=== PATIENT | female | born 1945 | race Caucasian/White ===

== ENCOUNTER 2019-06-14 09:40 | Observation (INO) | payer MEDICARE, BC, SELFPAY ==
[2019-06-14] VITALS (7 sets, daily range): BP systolic 99–173; BP diastolic 58–85; PULSE 72–86; RESP 13–22; TEMP 36.7–37; O2SAT 93–97; BMI 40.7
--- NOTE | 2019-06-14 10:03 | ED_ITS ---
Entered by Adan Diaz, acting as scribe for Arsenio Montse DO HPI - Chest Pain General: Chief Complaint: Chest Pain Stated Complaint: chest pains, dizzy Time Seen by Provider: 06/14/19 09:58 History of Present Illness: HPI narrative: 73 yo female presents with chest pain. Pt states that she couldn't stand up due to cramping in her chest. Pt states that she had stents placed 10 years ago. pt states that she just moved here, she only has a PCP set up at this time. pt states that she became short of breath with the pain. pt states that the pain is no longer there. MD complaint: chest pain Onset (ago): minute(s) (20 mins) Onset: during rest Severity: moderate Quality: tightness and sharp Relieving factors: nothing Exacerbating factors: exertion Associated symptoms: Reports dyspnea and nausea; Deny abdominal pain, fever(s), palpitations, syncope or vomiting Review of Systems Const: Denies: fever, chills, body aches, fatigue, malaise or night sweats Eyes: Denies: change in vision or blurry vision ENMT: Denies: throat pain, oral sores/lesions, dental pain, nasal discharge or nasal congestion Card: Reports: chest pain and shortness of breath on exertion; Denies: palpitations, irregular heart rhythm, edema, syncope, shortness of breath when lying down or leg pain with exertion Resp: Reports: shortness of breath GI: Reports: nausea; Denies: abdominal pain, vomiting, vomiting blood, coffee grounds in vomit, difficulty swallowing, heartburn/indigestion, diarrhea, constipation, cramping, blood in stool or black tarry stool : Denies: flank pain, painful urination, urinary frequency, urinary urgency, urinary incontinence or blood in urine Musc: Denies: neck pain, back pain, extremity pain, extremity swelling, joint pain or joint swelling Skin/Breast: Denies: rash, itching or redness Neuro: Denies: headache, numbness in extremities, weakness in extremities, changes in sensation, lack of coordination, difficulty walking, frequent falls, dizziness, vertigo or confusion Psych: Denies: anxiety, depression, loss of interest, visual hallucinations, auditory hallucinations, suicidal ideation or homicidal ideation Endo: Denies: excessive urination, excessive thirst, tired all the time or cold intolerance Piyush/Lymph: Denies: easy bruising, easy bleeding, petechiae, enlarged lymph nodes or tender lymph nodes PFSH ED PFSH: Statuses (acute, chronic, etc) shown below reflect problem list status as previously entered and may not be historically accurate Medical History Coronary artery disease (Inactive) Depression (Acute) Hydrocephalus (Acute) Hyperlipidemia (Acute) Hypertension (Acute) Lumbar disc disease with radiculopathy (Acute) Obesity (Acute) Pulmonary embolism (Acute) Surgical History History of adjustable gastric banding (Acute) History of heart artery stent (Acute) History of hip replacement, total (Acute) Left, Right Hx of appendectomy (Acute) Family History Other Adopted Social History Smoking and tobacco status: never smoked Alcohol intake: never Physical Exam Const: COMMON NORMALS: average body habitus, oriented x3 and alert GENERAL APPEARANCE: cooperative, comfortable, well kempt and well developed NUTRITIONAL APPEARANCE: obese ORIENTATION/CONSCIOUSNESS: Yes awake, Yes oriented to person and Yes oriented to place HENMT: COMMON NORMALS: normocephalic, head/scalp atraumatic, EAC's normal, TM's normal bilaterally, external nose normal, moist oral mucous membranes and oropharynx normal HEAD & SCALP: normocephalic and atraumatic NOSE: external nose normal EXTERNAL AUDITORY CANAL: EAC's normal TYMPANIC MEMBRANE: TM's normal bilaterally MOUTH: oral and palatal mucosa normal, lip normal and tongue normal THROAT: posterior oropharynx normal and tonsils normal Eye: COMMON NORMALS: PERRL, EOMs intact bilaterally, conjunctivae normal and no scleral icterus CONJUNCTIVA: Yes conjunctivae normal PUPIL: Yes PERRL Neck/C-Spine: COMMON NORMALS: full ROM, no lymphadenopathy, supple, no meningeal signs and thyroid normal THYROID: thyroid normal and asymmetrical Lymph: LYMPHATIC: no lymphadenopathy noted Resp: COMMON NORMALS: normal respiratory effort, no retractions, no use of accessory muscles and clear to auscultation bilaterally AUSCULTATION: clear to auscultation bilaterally Cardio: COMMON NORMALS: regular rate and regular rhythm RATE: regular rate RHYTHM: regular rhythm HEART SOUNDS: no murmurs GI: COMMON NORMALS: normal to inspection, nondistended, normoactive bowel sounds, soft to palpation and no hepatosplenomegaly PALPATION: Yes soft and Yes no hepatosplenomegaly : COMMON NORMALS: Yes no CVA tenderness BLADDER/KIDNEY EXAM: Yes no CVA tenderness Back/Pelvis: COMMON NORMALS: no CVA tenderness LUMBAR SPINE/LOWER BACK: Yes normal to inspection Extremity: COMMON NORMALS: no clubbing, cyanosis or edema, no calf tenderness and no pedal edema Neuro: COMMON NORMALS: oriented x3 SENSORIUM/ORIENTATION: Yes alert, Yes oriented to person and Yes oriented to place MENINGEAL SIGNS: Yes no meningeal signs Psych: APPEARANCE: Yes well kempt Skin: COMMON NORMALS: no rashes or lesions noted and skin turgor normal GENERAL SKIN EXAM: no rashes or lesions noted and turgor normal Course Vital Signs: Vital signs: Vital Signs Temperature 98.4 F 06/14/19 09:55 Pulse Rate 81 06/14/19 15:05 Respiratory Rate 13 06/14/19 15:05 Blood Pressure 120/72 06/14/19 15:05 Pulse Oximetry 96 06/14/19 15:05 MDM - Chest Pain Lab Data: Labs: Lab Results 06/14/19 06/14/19 06/14/19 Range/Units 10:13 10:13 10:13 WBC 4.6 (4.0-10.0) 10^3/ uL RBC 4.67 (4.1-5.3) 10^6/u L Hgb 14.4 (11.5-15.3) g/dL Hct 41.8 (37.0-47.0) % MCV 89.5 (81-99) fL MCH 30.8 (28.0-34.0) pg MCHC 34.4 (30.0-36.0) g/dL RDW 11.9 L (12.1-15.1) % Plt Count 195 (130-400) 10^3/c mm MPV 9.5 (7.4-10.4) fL Neut % (Auto) 54.4 % Lymph % (Auto) 34.4 % [place] % (Auto) 5.9 % Eos % (Auto) 4.6 % Baso % (Auto) 0.7 % Neut # (Auto) 2.5 (1.8-7.7) 10^3/u L Lymph # (Auto) 1.6 (0.8-4.8) 10^3/u L [place] # (Auto) 0.3 (0.2-0.9) 10^3/u L Eos # (Auto) 0.2 (0.0-0.8) 10^3/u L Baso # (Auto) 0.0 (0.0-0.1) 10^3/u L Nucleated RBC % (a uto) 0 % Nucleated RBCs # 0.0 /100WBC Sodium 137 (136-145) mmol/L Potassium 3.9 (3.5-5.1) mmol/L Chloride 100 (98-107) mmol/L Carbon Dioxide 26 (22-29) mmol/L Anion Gap 14.9 (5-19) BUN 9 (8-23) mg/dL Creatinine 0.7 (0.5-0.9) mg/dL Glucose 253 H (74-106) mg/dL Calcium 9.5 (8.8-10.2) mg/Dl Total Bilirubin 0.7 (0.15-1.2) mg/dL AST 12 (0-32) U/L ALT 13 (0-33) U/L Alkaline Phosphata se 127 H (35-105) IU/L Troponin T Baselin e 8 (0-10) ng/mL Troponin T 120 Min sascha (0-10) ng/mL Delta Troponin T (0-10) ABS# Total Protein 6.9 (6.6-8.7) g/dL Albumin 4.2 (3.5-5.2) g/dL Globulin 2.7 (1.3-4.6) g/dL Lipase 13 (13-60) U/L 06/14/19 Range/Units 12:00 WBC (4.0-10.0) 10^3/ uL RBC (4.1-5.3) 10^6/u L Hgb (11.5-15.3) g/dL Hct (37.0-47.0) % MCV (81-99) fL MCH (28.0-34.0) pg MCHC (30.0-36.0) g/dL RDW (12.1-15.1) % Plt Count (130-400) 10^3/c mm MPV (7.4-10.4) fL Neut % (Auto) % Lymph % (Auto) % [place] % (Auto) % Eos % (Auto) % Baso % (Auto) % Neut # (Auto) (1.8-7.7) 10^3/u L Lymph # (Auto) (0.8-4.8) 10^3/u L [place] # (Auto) (0.2-0.9) 10^3/u L Eos # (Auto) (0.0-0.8) 10^3/u L Baso # (Auto) (0.0-0.1) 10^3/u L Nucleated RBC % (a uto) % Nucleated RBCs # /100WBC Sodium (136-145) mmol/L Potassium (3.5-5.1) mmol/L Chloride (98-107) mmol/L Carbon Dioxide (22-29) mmol/L Anion Gap (5-19) BUN (8-23) mg/dL Creatinine (0.5-0.9) mg/dL Glucose (74-106) mg/dL Calcium (8.8-10.2) mg/Dl Total Bilirubin (0.15-1.2) mg/dL AST (0-32) U/L ALT (0-33) U/L Alkaline Phosphata se (35-105) IU/L Troponin T Baselin e (0-10) ng/mL Troponin T 120 Min sascha 8.33 (0-10) ng/mL Delta Troponin T 0.33 (0-10) ABS# Total Protein (6.6-8.7) g/dL Albumin (3.5-5.2) g/dL Globulin (1.3-4.6) g/dL Lipase (13-60) U/L Discharge Plan Discharge Admit Provider: Dominic Zimmer Clinical Impression: Chest pain, Hypertension, Dizziness Condition: Stable Interventions: ED Discharge Assessment Last Done: 06/14/19 15:05 Discharge Date/Time: 06/14/19 15:06 Coding Level of Care Code ED Guard Captain for Chg Fwd Exam Problem Focused The documentation recorded by the scribeJoe Kialy, accurately reflects the service I personally performed and the decisions made by me, Arsenio Montes, Jun 14, 2019 09:40
--- NOTE | 2019-06-14 10:09 | ECG_ITS ---
Measurements Intervals [place] Rate: 86 P: 48 CO: 164 QRS: -63 QRSD: 121 T: 12 QT: 391 QTc: 468 SINUS RHYTHM LEFT AXIS DEVIATION [QRS AXIS < -30] POSSIBLE LEFT VENTRICULAR HYPERTROPHY [VOLTAGE CRITERIA PLUS LAE OR QRS WIDENING] POSSIBLE ANTEROSEPTAL MYOCARDIAL INFARCTION , PROBABLY OLD [30 ms Q WAVE IN V1-V4] No previous ECG available for comparison Electronically Signed On 06-14-2019 20:11:49 CONSOLIDATOR by Becky Sanon M.D. [id number]
--- NOTE | 2019-06-14 10:09 | XR_ITS ---
WS: [id number] PORTABLE CHEST HISTORY: cheat pain COMPARISON: None available. NEW GRAD RN shunt catheter projects over the RIGHT thorax. Lungs are clear and well expanded. No pleural effusion or pneumothorax. Cardiac size: Normal. Mediastinum/Aorta: Mild atherosclerosis aorta. No osseous abnormality seen. XR/XR chest 1V portable [id number] IMPRESSION: Partially calcified thoracic aorta. No acute findings.
[2019-06-14 10:20] LABS: Basophils % 0.7 %; Eosinophils # 0.2 10^3/uL (0.0-0.8); Eosinophils % 4.6 %; Hematocrit 41.8 % (37.0-47.0); Hemoglobin 14.4 g/dL (11.5-15.3); Lymphocytes # 1.6 10^3/uL (0.8-4.8); Lymphocytes % 34.4 %; Mean Corpuscular HGB Conc 34.4 g/dL (30.0-36.0); Mean Corpuscular Hemoglobin 30.8 pg (28.0-34.0); Mean Corpuscular Volume 89.5 fL (81-99); Mean Platelet Volume 9.5 fL (7.4-10.4); Monocytes # 0.3 10^3/uL (0.2-0.9); Monocytes % 5.9 %; Neutrophils # 2.5 10^3/uL (1.8-7.7); Neutrophils % 54.4 %; Nucleated Red Blood Cells % 0 %; Platelet Count 195 10^3/cmm (130-400); Red Blood Count 4.67 10^6/uL (4.1-5.3); Red Cell Distribution Width 11.9 % (12.1-15.1); White Blood Count 4.6 10^3/uL (4.0-10.0)
[2019-06-14] MEDS: aspirin 81 mg Chew Tablet 324 MG PO (10:22)
[2019-06-14 10:41] LABS: Alanine Aminotransferase 13 U/L (0-33); Albumin Level 4.2 g/dL (3.5-5.2); Alkaline Phosphatase 127 IU/L (35-105); Anion Gap 14.9 (5-19); Aspartate Amino Transferase 12 U/L (0-32); Blood Urea Nitrogen 9 mg/dL (8-23); Calcium 9.5 mg/Dl (8.8-10.2); Carbon Dioxide 26 mmol/L (22-29); Chloride 100 mmol/L (98-107); Globulin 2.7 g/dL (1.3-4.6); Glucose 253 mg/dL (74-106); Lipase 13 U/L (13-60); Potassium 3.9 mmol/L (3.5-5.1); Sodium 137 mmol/L (136-145); Total Bilirubin 0.7 mg/dL (0.15-1.2); Total Protein 6.9 g/dL (6.6-8.7)
[2019-06-14 10:42] LABS: Troponin(5th) Baseline 8 ng/mL (0-10)
--- NOTE | 2019-06-14 12:09 | ECG_ITS ---
Measurements Intervals [place] Rate: 77 P: 52 NV: 183 QRS: -61 QRSD: 119 T: 4 QT: 405 QTc: 460 SINUS RHYTHM LEFT ANTERIOR FASCICULAR BLOCK [QRS AXIS <= -45, QR IN I, RS IN II] POSSIBLE ANTEROSEPTAL MYOCARDIAL INFARCTION , PROBABLY OLD [30 ms Q WAVE IN V1-V4] No previous ECG available for comparison Electronically Signed On 06-14-2019 20:13:13 SOFTWARE TEST ENGINEER by Becky Sanon M.D. [id number]
[2019-06-14 12:26] LABS: Troponin 5 2HR 8.33 ng/mL (0-10); Troponin 5 2HR Delta 0.33 ABS# (0-10)
--- NOTE | 2019-06-14 13:27 | P.HP_ITS ---
Providers/Chief Complaint Chief Complaint: chest pains, dizzy History of Present Illness Cherelle Sue is a 73 year old female that presents to the emergency department with complaints of chest pain. She reports she had a chest pain episode about 4 weeks ago, associated with cramping in her right chest. She reports this occurred after being asleep. This went away and she did not seek any further care. She did tell her primary at some point and is scheduled for a stress test next week. She reports she had recurrent chest pain, right side and then substernally, felt to be a cramping, occurring after she woke up and lasting 15 minutes today. She reports she occasionally feels like she has a spasm there now but will only last several seconds. She denies any injury to her chest or recent activity that could have caused muscular pain. Denies any heartburn, blood in her stool, or black or tarry stools. No shortness of breath, or nausea. Does not have any chest discomfort currently. She does report some dizziness lately as well. She reports that is been going on for 3 months. She has seen neurology. She has had a shunt series which she reports was normal. Head CT done in April was without any acute changes. Review of Systems General: Reports: 10 or more systems reviewed and unremarkable except in HPI and below Const: Denies: fever or chills Eyes: Denies: eye discomfort ENMT: Denies: throat pain Card: Reports: chest pain Resp: Denies: shortness of breath GI: Denies: abdominal pain : Denies: difficulty urinating Musc: Denies: extremity pain Skin/Breast: Denies: rash Neuro: Reports: dizziness Psych: Reports: depression Medications/Allergies Home Medications Medication Instructions Recorded Confirmed Last Taken Type duloxetine 60 mg PO DAILY 06/14/19 06/14/19 06/13/19 History Allergies Allergy/AdvReac Type Severity Reaction Status Date / Time No Known Allergies Allergy Unverified 06/13/19 13:29 PFSH Acute PFSH: Statuses (acute, chronic, etc) shown below reflect problem list status as previously entered and may not be historically accurate Medical History (Updated 06/14/19 @ 13:51 by Dominic Zimmer MD) Coronary artery disease (Inactive) Depression (Acute) Hydrocephalus (Acute) Hyperlipidemia (Acute) Hypertension (Acute) Lumbar disc disease with radiculopathy (Acute) Obesity (Acute) Pulmonary embolism (Acute) Surgical History (Updated 06/14/19 @ 13:34 by Dominic Zimmer MD) History of adjustable gastric banding (Acute) History of heart artery stent (Acute) History of hip replacement, total (Acute) Left, Right Hx of appendectomy (Acute) Family History (Updated 06/14/19 @ 13:36 by Dominic Zimmer MD) Other Adopted Social History Smoking and tobacco status: never smoked Alcohol intake: never Vitals/I&O/Wt Last Vital Signs Temp 98.4 F 06/14/19 09:55 Pulse 81 06/14/19 09:55 Resp 16 06/14/19 09:55 BP 173/85 06/14/19 09:55 Pulse Ox 95 06/14/19 09:55 Weight last 48 hrs Weight 111.13 kg Physical Exam Narrative: EXAM NARRATIVE: General exam is an obese white female in no apparent distress HEENT: Pupils equally round. Oropharynx clear Neck is supple no lymphadenopathy or thyromegaly Cardiovascular regular rate and rhythm without murmur. No S3 or S4. Lungs clear no wheezing or crackles Abdomen is soft obese nontender with positive bowel sounds. No obvious organomegaly was deferred Extremities no cyanosis clubbing or edema, cap refill brisk Skin no rash. Multiple seborrheic keratoses Neuro no focal deficits Data : 06/14/19 10:13 06/14/19 10:13 Other data: EKG demonstrates a sinus rhythm, poor R wave progression Chest x-ray reviewed, no infiltrate A&P Assessment and plan (1) Hypertension: Status: Acute Code(s): I10 - Essential (primary) hypertension (2) Chest pain: Significant risk factors and past history of coronary disease with stent placement approximately 10 years ago. Will need to rule out myocardial infa rction, perform nuclear stress test, and echocardiogram. Status: Acute Code(s): R07.9 - Chest pain, unspecified (3) Dizziness: Evaluated by neurology in the recent past. No evidence of SPORTS ADMINISTRATOR shunt dysfunction Status: Acute Code(s): R42 - Dizziness and giddiness (4) Elevated glucose: Will check hemoglobin A1c. Sliding scale insulin for now Status: Acute Code(s): R73.09 - Other abnormal glucose Additional A&P Information Past history of coronary disease, with stenting approximately 10 years ago History of SPORTS ADMINISTRATOR shunt, and from their description probable normal pressure hydrocephalus History of DVT and pulmonary embolism with past history of vena cava filter, removal, and venous stents. On chronic anticoagulation Hypertension Hyperlipidemia Obesity DJD Attestations Medical Necessity Statement*: Will need less than 2 midnight stay for evaluation of chest pain Coding Level of Care Code Acute Spool Winder for [facility] Fwd Diagnoses Hypertension I10 Chest pain R07.9 Dizziness R42 Elevated glucose R73.09
--- NOTE | 2019-06-14 17:08 | USCV_ITS ---
Linette Cherelle Age: 73 Gender: F : 1945 Exam Date: 06/14/2019 17:17 Ordering Phys: Dominic Zimmer MD Technologist: Love Baker [place]am [place] [facility] [place]: CHEST PAIN BP: / HR: 78 Rhythm: Sinus Technical Quality: Adequate MEASUREMENTS (Male / Female) Normal Values 2D ECHO LV Diastolic Diameter PLAX 4.8 cm 4.2 - 5.9 / 3.9 - 5.3 cm LV Systolic Diameter PLAX 2.0 cm LV Chamber Size 2.5 cm IVS Diastolic Thickness 1.1 cm 0.6 - 1.0 / 0.6 - 0.9 cm IVS Systolic Thickness 2.0 cm LVPW Diastolic Thickness 1.7 cm 0.6 - 1.0 / 0.6 - 0.9 cm LVPW Systolic Thickness 2.3 cm RV Chamber Size 3.3 cm LVOT Diameter 2.0 cm LV Ejection Fraction 2D Teich 88.4 % LA Diameter 3.6 cm LA Width 3.0 cm LA Height 3.4 cm RA Width 3.8 cm RA Height 3.1 cm Aorta at Sinotubular Diameter 2.6 cm M-MODE LV Diastolic Diameter MM 5.7 cm 4.2 - 5.9 / 3.9 - 5.3 cm LV Systolic Diameter MM 3.5 cm LV Ejection Fraction MM Teich 69.5 % IVS Diastolic Thickness MM 0.7 cm 0.6 - 1.0 / 0.6 - 0.9 cm IVS Systolic Thickness MM 1.4 cm LVPW Diastolic Thickness MM 0.9 cm 0.6 - 1.0 / 0.6 - 0.9 cm LVPW Systolic Thickness MM 1.3 cm Aortic Annulus Diameter 3.0 cm LA Ao Ratio MM 1.2 MV E Point Septal Separation 0.8 cm DOPPLER AV Peak Velocity 168.0 cm/s LVOT Peak Velocity 112.0 cm/s AV Area Cont Eq vti 1.9 cm squared AV Area Cont Eq pk 2.2 cm squared MV Area PHT 3.7 cm squared Mitral E to A Ratio 0.8 MV E' Velocity 7.0 cm/s Mitral E to MV E' Ratio 8.6 Mitral E to LV E' Lateral Ratio 8.9 Mitral E to LV E' Septal Ratio 8.3 TR Peak Velocity 272.0 cm/s TR Peak Gradient 29.7 mmHg TR Mean Velocity 183.6 cm/s TR Mean Gradient 17.5 mmHg TR Velocity Time Integral 99.4 cm TV Peak E Velocity 52.0 cm/s Right Atrial Pressure 3.0 mmHg Pulmonary Artery Systolic Pressu 32.6 mmHg PV Peak Velocity 57.0 cm/s RV Acceleration Time 0.2 s RV Ejection Time 0.3 s RV AcT/ET 0.6 FINDINGS Left Ventricle Normal left ventricular size and systolic function, EF 65% . No regional wall motion abnormalities. Some features of left ventricular diastolic dysfunction of grade 1 Right Ventricle Possibly of normal size ejection fraction Right Atrium Possibly of normal size Left Atrium Possibly of normal size Mitral Valve No gross abnormalities noted Aortic Valve Thickened aortic valve. Tricuspid Valve Mild tricuspid valve regurgitation. Pulmonic Valve Pulmonic valve not well visualized. Pericardium No pericardial effusion. Aorta Normal aortic annulus size. CONCLUSIONS Normal left ventricular size and systolic function, EF 65% . No regional wall motion abnormalities. Some features of left ventricular diastolic dysfunction of grade 1. Thickened aortic valve. Mild tricuspid valve regurgitation. Estimated pulmonary artery peak systolic pressure 33 mmHg Technically difficult study because of the poor ultrasonic window. No previous study is available for comparison. Dr Eduardo Will MD [facility] (Electronically Signed) Final Date: 14 June 2019 20:58 S
[2019-06-14 17:13] LABS: Troponin 5 6HR 8.35 ng/L (0-10); Troponin 5 6HR Delta 0.35 ng/L (0-12)
[2019-06-14 17:27] LABS: Glucose Point of Care 151 mg/dL (70-110)
[2019-06-14] MEDS: pantoprazole DR 40 mg Tablet PO (17:42)
[2019-06-14 20:21] LABS: Estmated Average Glucose 214; Hemoglobin A1C 9.1 % (4.0-6.0)
[2019-06-14 23:29] LABS: Glucose Point of Care 309 mg/dL (70-110)
[2019-06-15] VITALS (9 sets, daily range): BP systolic 97–146; BP diastolic 63–88; PULSE 74–82; RESP 16–24; TEMP 36.6–36.8; O2SAT 93–96; BMI 41.3
--- NOTE | 2019-06-15 00:40 | PC.NURSE ---
Patient is refusing novolog. Educated about the importance of the novolog d/t high blood sugars. Patient stated I dont take insulin at home and never have so I do not need it
[2019-06-15 04:29] LABS: Anion Gap 14.6 (5-19); Blood Urea Nitrogen 12 mg/dL (8-23); Calcium 9.5 mg/Dl (8.8-10.2); Carbon Dioxide 25 mmol/L (22-29); Chloride 102 mmol/L (98-107); Glucose 234 mg/dL (74-106); Potassium 3.6 mmol/L (3.5-5.1); Sodium 138 mmol/L (136-145)
[2019-06-15 04:36] LABS: Basophils % 0.5 %; Eosinophils # 0.3 10^3/uL (0.0-0.8); Eosinophils % 5.1 %; Hematocrit 42.5 % (37.0-47.0); Hemoglobin 14.2 g/dL (11.5-15.3); Lymphocytes # 2.4 10^3/uL (0.8-4.8); Mean Corpuscular HGB Conc 33.4 g/dL (30.0-36.0); Mean Corpuscular Hemoglobin 31.7 pg (28.0-34.0); Mean Corpuscular Volume 94.9 fL (81-99); Monocytes # 0.4 10^3/uL (0.2-0.9); Monocytes % 6.8 %; Neutrophils # 2.4 10^3/uL (1.8-7.7); Neutrophils % 44.4 %; Nucleated Red Blood Cells % 0 %; Platelet Count 188 10^3/cmm (130-400); Red Blood Count 4.48 10^6/uL (4.1-5.3); Red Cell Distribution Width 11.9 % (12.1-15.1); White Blood Count 5.5 10^3/uL (4.0-10.0)
--- NOTE | 2019-06-15 06:00 | ECG_ITS ---
NAME OF STUDY: LEXISCAN SESTAMIBI STRESS TEST INDICATION: Chest Pain PROCEDURE: At the baseline, the blood pressure was 129/79 mm Hg with a heart rate of 73 bpm. The electrocardiogram showed sinus rhythm, left anterior fascicular block and possible old anterior infarct. The Lexiscan was infused over a period of 20 seconds. A total of 0.4 milligrams of Lexiscan was infused. The stress phase was continued for a total of 5 minutes. Heart rate at the end of the stress phase was 93 bpm with a blood pressure 149/82 mmHg and oxygen saturation 96%. The EKG at the peak infusion revealed no significant ST-T wave changes. Sestamibi was injected 20 seconds after the Lexiscan infusion. Blood pressure at the end of the recovery phase was 140/79 mmHg with a heart rate of 86 beats per minute. CONCLUSION: 1. No significant EKG changes with the LexiScan infusion. 2. No LexiScan induced chest pain or cardiac arrhythmia. 3. Normal blood pressure and heart rate response. 4. Sestamibi/sestamibi perfusion scan pending; see separate report. Electronically Signed On 06-15-2019 17:50:57 NECKTIE STITCHER by Kiersten Soni M.D. [id number]
[2019-06-15] MEDS: losartan 50 mg Tablet 100 MG PO (09:09)
[2019-06-15] MEDS: aspirin 81 mg EC Tablet PO (09:10)
[2019-06-15] MEDS: metoprolol succinate ER (24 HR) 25 mg Tablet PO (09:10)
[2019-06-15] MEDS: rivaroxaban 10 mg Tablet PO (09:10)
[2019-06-15] MEDS: duloxetine 60 mg Capsule PO (09:10)
[2019-06-15 09:20] LABS: Glucose Point of Care 260 mg/dL (70-110)
[2019-06-15 11:29] LABS: Glucose Point of Care 203 mg/dL (70-110)
--- NOTE | 2019-06-15 12:26 | PC.CHAP ---
Pastoral Care Encounter/Spiritual Assessment Type of Contact [] Declined program counselor visit [] Patient/Family/Request visit [] Outpatient visit [] Follow-up visit [] Physician referral [] Code/Alert [x] Routine visit [] Staff referral [] Actively dying [] Patient sleeping [] Family support [] [] Out of room [] Palliative care [] [] Receiving care in room [] Pre-surgical visit [] Trauma [] Long length of stay [] ICU visit [] Other: Relational/Emotional Strength [x] Patient feels connected with others/family/visitors/staff [] Distress [] Loneliness/isolation [] Abandonment Spirituality of Patient [x] Person of Cierra [x] Attends Confucianist of their Cierra [x] Believes in Prayer [] Reads Bible or Yarsanism materials [] There are Spiritual issues to be addressed Vapor Coater Interventions [x] Prayer [x] Active listening [x] Non-anxious presence [x] Spiritual/emotional support [] Crisis/trauma care [] Spiritual counseling [] Bereavement support [] Provided bereavement packet [] Provided Bible/devotional materials [] Provided toy/stuffed animal, coloring book to patient or family member [x] Completed spiritual assessment [] Provided Communion [] Anointing/Lead [] Salvation [] Other: Impact on Illness or Injury [] Angry [] Fearful [] Anxious [] Often cries [] Exhaustion [] Unable to work [] Unable to attend restoration [] Unable to walk/stand [] Unable to read [] Unable to drive [] Unable to eat/drink [] Unable to sleep [] Unable to be with family [] Other: Summary Marcy seen patient and she seems to be doing good and is waiting on test , she was nice to talk with and enjoyed our conversation. Time spent with patient 15 minutes
--- NOTE | 2019-06-15 13:25 | NMCV_ITS ---
NM rahel perf SPECT r/s* [id number] Cherelle Sue Age: 73 Gender: F : 1945 Exam Date: 06/15/2019 12:45 Ordering Phys: Dominic Zimmer MD Technologist: AYAD Garcia Exam Location: [facility] Indications: Chest Pain, dizzyness STRESS TEST Please see separate stress test report in [facility] for full findings IMAGE PROTOCOL Rest/Stress 1 Lexiscan Day Radiopharmaceutical Dose (mCi) Administration Site Administered by Rest: Tc-99m 10.8 IV AYAD Garcia Sestamibi Stress:Tc-99m 32.8 IV AYAD Garcia Sestamibi Rest: 15-Jun-2019 60 Discovery 630 Stress: 15-Jun-2019 60 Discovery 630 0.4mg Lexiscan. Supine position only as patient was unable to lay prone due to laying on her belly making her nauseated. 48H Chest Wall. SPECT RESULTS Technical Quality: Good Raw Data Analysis: Normal, Breast attenuation. 48H chest wall. , Soft tissue attenuation Image Corrections: Attenuation correction applied to stress images Summed Stress Score: 6 Summed Rest Score: 7 Summed Difference Score: 1 PERFUSION FINDINGS Small size perfusion abnormality of mild to moderate severity of mid to apical inferolateral, apical inferior and apical castorena on rest images with improved tracer uptake on supine stress images. This is likely suggestive of attenuation artifact. FUNCTIONAL RESULTS (calculated via Gated SPECT) Stress Image LV EF (%): 76 Stress EDV (mL):68 TID: 0.85 Stress ESV (mL):16 FUNCTIONAL FINDINGS: The left ventricle is normal in size. Transient Ischemia Dilatation of 0.85. There is normal left ventricular systolic function. The left ventricular ejection fraction is normal with a value of 76%. There is normal left ventricular wall thickening. IMPRESSIONS 1. Small size perfusion abnormality of mid to apical inferolateral, apical inferior and apical castorena on rest images with improved tracer uptake on stress images. This likely suggests attenuation artifact. 2. Overall left ventricular systolic function is normal without regional wall motion abnormalities. 3. The left ventricular ejection fraction is normal with a value of 76%. 4. No significant coronary ischemia based on the study.[id number] Kiersten Soni MD (Electronically Signed) Final Date: 15 June 2019 17:40 MTDD
[2019-06-15] MEDS: ondansetron 2 mg/ML SDV 2 mL 4 MG IVP (13:35)
[2019-06-15] MEDS: regadenoson 0.4 Mg/5 ml Syringe IVP (13:41)
[2019-06-15 16:37] LABS: Glucose Point of Care 274 mg/dL (70-110)
--- NOTE | 2019-06-15 16:58 | P.DS_ITS ---
Discharge Providers Date of Admission: 06/14/19 13:24 Date of Discharge: 06/15/19 Attending Provider at Admission: Dominic Zimmer MD Attending Provider at Discharge: Dominic Zimmer MD Diagnoses at Discharge Discharge Diagnosis (1) Hypertension: Status: Acute Problem details: Stable (2) Chest pain: Status: Acute Problem details: Nuclear stress test no reversible ischemia. Has follow-up with cardiology 2 to 3 weeks. (3) Dizziness: Status: Acute Problem details: Has been following with neurology. Meclizine as needed prescribed (4) Elevated glucose: Status: Acute Problem details: Hemoglobin A1c elevated. Initiation of metformin 500 mg twice daily Reason for Visit Reason for Visit: Reason For Visit: chest pains, dizzy Hospital Course Hospital Course: Patient presented to the hospital with atypical chest discomfort. All troponins were negative. EKGs demonstrated no acute changes. Secondary to past history of coronary disease statin, aspirin were added to beta-amlicar. Hemoglobin A1c was done secondary to elevated sugar. Nuclear stress test was performed as well as echocardiogram. Echocardiogram was largely normal, no wall motion abnormalities. Nuclear stress test was called to me, and showed no reversible ischemia. Attenuation in the inferior was noted. I discussed this with the patient, limitations of stress testing, and it was elected for discharge home with follow-up with cardiology, neurology and her primary care provider. Medications a changes included addition of statin secondary to past history of coronary disease. Will continue beta-amilcar. Added aspirin. Trial of meclizine for dizziness. At time of discharge she had ambulated, and it had no chest discomfort. Physical Exam Narrative: EXAM NARRATIVE: General exam no apparent distress Cardiovascular regular rate and rhythm without murmur Lungs clear Abdomen is soft, positive bowel sounds Extremities no cyanosis clubbing or edema Discharge Data Data Completed and Pending: Completed Studies During Hospitalization Category Date Time Status XR chest 1V nohemy ble [id number] Stat Exams 06/14/19 10:09 Completed CV echo complete* [id number] Urgent Ultrasound 06/14/19 17:08 Completed Pending at discharge Category Date Time Status Cardiac Stress Te st MIBI [Sestamibi Stress Test Reque st Exams 06/15/19 06:00 Ordered ] Routine NM rahel perf SPECT r&s* [id number] Routin e Nuc Med 06/15/19 13:25 Taken Labs from last 24 hours 06/15/19 06/15/19 06/15/19 16:31 11:18 09:15 WBC RBC Hgb Hct MCV MCH MCHC RDW Plt Count MPV Neut % (Auto) Lymph % (Auto) Davidson % (Auto) Eos % (Auto) Baso % (Auto) Neut # (Auto) Lymph # (Auto) Davidson # (Auto) Eos # (Auto) Baso # (Auto) Nucleated RBC % (a uto) Nucleated RBCs # Sodium Potassium Chloride Carbon Dioxide Anion Gap BUN Creatinine Glucose POC Glucose 274 203 260 Estimat Average Gl ucose Hemoglobin A1c Calcium Troponin I 6 Hour Troponin I Hi Sens Del 06/15/19 06/15/19 06/14/19 03:10 03:10 23:12 WBC 5.5 RBC 4.48 Hgb 14.2 Hct 42.5 MCV 94.9 D MCH 31.7 MCHC 33.4 RDW 11.9 L Plt Count 188 MPV 10.0 Neut % (Auto) 44.4 Lymph % (Auto) 43.0 Davidson % (Auto) 6.8 Eos % (Auto) 5.1 Baso % (Auto) 0.5 Neut # (Auto) 2.4 Lymph # (Auto) 2.4 Davidson # (Auto) 0.4 Eos # (Auto) 0.3 Baso # (Auto) 0.0 Nucleated RBC % (a uto) 0 Nucleated RBCs # 0.0 Sodium 138 Potassium 3.6 Chloride 102 Carbon Dioxide 25 Anion Gap 14.6 BUN 12 Creatinine 0.7 Glucose 234 H POC Glucose 309 Estimat Average Gl ucose Hemoglobin A1c Calcium 9.5 Troponin I 6 Hour Troponin I Hi Sens Del 06/14/19 06/14/19 06/14/19 17:21 16:20 10:13 WBC RBC Hgb Hct MCV MCH MCHC RDW Plt Count MPV Neut % (Auto) Lymph % (Auto) Davidson % (Auto) Eos % (Auto) Baso % (Auto) Neut # (Auto) Lymph # (Auto) Davidson # (Auto) Eos # (Auto) Baso # (Auto) Nucleated RBC % (a uto) Nucleated RBCs # Sodium Potassium Chloride Carbon Dioxide Anion Gap BUN Creatinine Glucose POC Glucose 151 Estimat Average Gl ucose 214 Hemoglobin A1c 9.1 H Calcium Troponin I 6 Hour 8.35 Troponin I Hi Sens Del 0.35 Vitals: Last Vital Signs Temp 98.3 F 06/15/19 15:49 Pulse 75 06/15/19 15:49 Resp 18 06/15/19 15:49 BP 146/78 06/15/19 15:49 Pulse Ox 93 06/15/19 15:49 Discharge Plan Discharge Patient Disposition: Home, Self-Care Condition: Stable Prescriptions: New aspirin 81 mg Tablet,Delayed Release (Dr/Ec) 81 mg PO DAILY Qty: 30 RF: 0 meclizine 12.5 mg tablet 12.5 mg PO TID PRN (Reason: dizziness) Qty: 20 RF: 0 pantoprazole 40 mg Tablet,Delayed Release (Dr/Ec) 40 mg PO DAILY Qty: 30 RF: 0 metformin [Glucophage] 500 mg tablet 500 mg PO BID Qty: 60 RF: 0 atorvastatin [Lipitor] 20 mg tablet 20 mg PO DAILY Qty: 30 RF: 0 Continued metoprolol succinate 25 mg tablet extended release 24 hr 25 mg PO DAILY RF: 0 irbesartan 300 mg tablet 300 mg PO DAILY RF: 0 Xarelto 10 mg tablet 10 mg PO DAILY RF: 0 duloxetine 60 mg Capsule,Delayed Release(Dr/Ec) 60 mg PO DAILY RF: 0 Discharge Orders: Discharge Order (Routine); Ordered 06/15/19 Ordered By: Dominic Zimmer Referrals: Naida Duran MD [Physician] - 1 month CHANG CASTRO DO [Family Provider] - 4-7 days August Pretty MD [Physician] - 2 weeks (Already has follow-up scheduled 2 to 3 weeks) Discharge Diet: Diabetic Discharge Activity: Increase activity as tolerated Activity Restrictions/Additional Instructions: Take all medicine as prescribed. Return for any significant chest pain. Keep follow-up. Keep track of blood sugars and report to primary care provider Discharge Attestations Time Spent in Discharge Care*: greater than 30 min Quality Metrics Clinical Quality Measures During this hospital stay, did patient experience: None Coding Level of Care Code Acute Machine Sizer for Chg Fwd Diagnoses Hypertension I10 Chest pain R07.9 Dizziness R42 Elevated glucose R73.09
== END 2019-06-15 18:01 | disposition home or self-care (01) ==
LOC: ER 13:50 → MEDSURG 14:29
PROVIDERS: Admitting Provider Internal Medicine; Emergency Provider Family Medicine; Family Provider Internal Medicine; Visit Provider Internal Medicine
DX: I10 Essential (primary) hypertension (principal); R42 Dizziness and giddiness; R73.09 Other abnormal glucose; R07.89 Other chest pain; I25.10 Atherosclerotic heart disease of native coronary artery without angina pectoris; Z95.5 Presence of coronary angioplasty implant and graft; Z86.718 Personal history of other venous thrombosis and embolism; Z86.711 Personal history of pulmonary embolism; Z79.01 Long term (current) use of anticoagulants; E78.5 Hyperlipidemia, unspecified; M19.90 Unspecified osteoarthritis, unspecified site; E66.9 Obesity, unspecified; Z68.31 Body mass index [BMI] 31.0-31.9, adult
CPT/HCPCS: 12345; 36415; 36416; 71045; 78452; 80048; 80053; 82962; 83036; 83690; 84484; 85025; 93005; 93017; 93306; 96372; 96374; 99282; 99285; A9500; G0378; J1815; J2405; J2785

== ENCOUNTER → 2019-09-20 09:03 | Outpatient (BNVA) | payer MEDICARE, BC, SELFPAY | PROVIDERS: Family Provider Internal Medicine; PCP Internal Medicine; Visit Provider Specialist | DX: M79.7 Fibromyalgia (principal); M54.2 Cervicalgia; G31.84 Mild cognitive impairment of uncertain or unknown etiology; G91.2 (Idiopathic) normal pressure hydrocephalus | CPT/HCPCS: 20550; 96116; 99214; J1030; J3490 ==

== ENCOUNTER 2019-10-17 15:04 | Outpatient (CLI) | payer MEDICARE, BC, SELFPAY ==
--- NOTE | 2019-10-17 | USCV_ITS ---
Cherelle Sue Age: 73 Gender: F : 1945 Exam Date: 10/17/2019 16:08 Ordering Phys: Mitra Srivastava [employer] Technologist: Tyler Rodriguez Exam Location: [facility] [place] Indication: DIZZINESS Risk Factors: Previous Vascular Surgery: Right Brachial BP: / Left Brachial BP: / Right Left Velocity (cm/s) Spectral Plaque Velocity (cm/s) Spectral Plaque Syst/Diast Broadening Syst/Diast Broadening 89.30/ 18.70 Prox CCA 91.00 / 25.20 73.30/ 18.30 Mid CCA 104.20/ 23.90 52.50/ 14.90 Distal CCA 61.10 / 18.40 72.40/ 20.20 Prox ICA 52.80 / 13.20 74.20/ 19.20 Mid ICA 58.10 / 12.80 50.40/ 22.00 Distal ICA 41.90 / 16.20 75.85 ECA 74.30 1.01 ICA/CCA 0.56 Antegrade Vertebral Antegrade 38.50/ 15.60 cm/s 55.20/ 21.00 cm/s Tri Subclavian Tri 61.10 66.70 FINDINGS Mild to moderate plaques bilaterally at the bifurcations and proximal internal carotid arteries. Intimal thickening in the common carotid arteries bilaterally. Antegrade flow in the vertebral arteries bilaterally. CONCLUSIONS Mild to moderate plaques bilaterally at the bifurcations and proximal internal carotid arteries No significant stenosis, based on the above findings Dr Eduardo Will MD [facility] (Electronically Signed) Final Date: 17 Oct 2019 19:26 S
== END 2019-10-17 15:05 | disposition home or self-care (01) ==
LOC: RAD 15:09
PROVIDERS: Family Provider Internal Medicine; PCP Internal Medicine; Visit Provider Nurse Practitioner Family
DX: R42 Dizziness and giddiness (principal); I48.91 Unspecified atrial fibrillation; I25.10 Atherosclerotic heart disease of native coronary artery without angina pectoris; I10 Essential (primary) hypertension
CPT/HCPCS: 93880

== ENCOUNTER 2020-04-02 11:17 | Outpatient (CLI) | payer MEDICARE, BC, SELFPAY ==
--- NOTE | 2020-04-02 11:30 | XR_ITS ---
WS: [id number] Cervical spine, 4 views, 04/02/2020 Clinical Data: NECK PAIN Comparison: None. Findings: No compression fractures are seen. There is degenerative disc narrowing at C3-C4, C4-C5, C5 -C6 and C6-C7. There is a minimal subluxation of 0.2 cm of C6 on C7. Anterior osteophyte formation fr om C3 through C7 is present. There is also posterior osteophyte formation at these levels. There is n o prevertebral soft tissue swelling. The odontoid is unremarkable. The soft tissues of the neck and t he lung apices are normal. There is a ventriculoperitoneal shunt tube on the right side of the neck. XR/XR cervical spine 3V* [id number] Impression: 1. Degenerative arthritis and degenerative disc disease from C3 through C7. 2. Minimal subluxation of C6 on C7 of 0.2 cm.
== END 2020-04-02 11:18 | disposition home or self-care (01) ==
LOC: RAD 11:23
PROVIDERS: PCP Internal Medicine; Visit Provider Nurse Practitioner Family
DX: M47.812 Spondylosis without myelopathy or radiculopathy, cervical region (principal); M50.323 Other cervical disc degeneration at C6-C7 level; S13.170A Subluxation of C6/C7 cervical vertebrae, initial encounter; X58.XXXA Exposure to other specified factors, initial encounter
CPT/HCPCS: 72040

== ENCOUNTER 2020-05-08 06:00 | Outpatient (RCR) | payer MEDICARE, BC, SELFPAY | END 2020-05-30 23:59 | disposition home or self-care (01) | LOC: SPT 06:00 | PROVIDERS: PCP Internal Medicine; Referring Provider Orthopaedic Surgery; Visit Provider Orthopaedic Surgery | DX: M54.2 Cervicalgia (principal) | CPT/HCPCS: 97161 ==

== ENCOUNTER 2021-04-09 11:43 | Outpatient (CLI) | payer MEDICARE, BC, SELFPAY ==
--- NOTE | 2021-04-09 11:54 | XR_ITS ---
WS: [id number] Right ankle, 3 views, 04/09/2021 Clinical Data: R ANKLE JOINT PAIN/R FOOT PAIN Comparison: None. Findings: No fractures or dislocations are seen. The ankle mortise is normal. The talus and calcaneus are unrem arkable. No soft tissue swelling over the medial or lateral malleolus is seen. There is a plantar spur. XR/XR ankle RT min 3V* [id number] Impression: Negative right ankle.
--- NOTE | 2021-04-09 11:54 | XR_ITS ---
WS: [id number] Right foot, 3 views, right foot Clinical Data: R ANKLE JOINT PAIN/R FOOT PAIN Comparison: None. Findings: No fractures or dislocations are seen. No bone destruction or erosion is noted. The joint spaces and soft tissues are normal. There is a plantar spur. XR/XR foot RT min 3V* [id number] Impression: Negative right foot.
[2021-04-09 13:20] LABS: Basophils # 0.1 10^3/uL (0.0-0.1); Basophils % 0.8 %; Eosinophils # 0.2 10^3/uL (0.0-0.8); Eosinophils % 3.3 %; Hematocrit 40.6 % (37.0-47.0); Hemoglobin 13.8 g/dL (11.5-15.3); Lymphocytes # 1.8 10^3/uL (0.8-4.8); Lymphocytes % 29.4 %; Mean Corpuscular Hemoglobin 30.6 pg (28.0-34.0); Mean Platelet Volume 10.3 fL (7.4-10.4); Monocytes # 0.3 10^3/uL (0.2-0.9); Monocytes % 5.6 %; Neutrophils # 3.69 10^3/uL (1.8-7.7); Neutrophils % 60.6 %; Nucleated Red Blood Cells % 0 %; Platelet Count 222 10^3/cmm (130-400); Red Blood Count 4.51 10^6/uL (4.1-5.3); Red Cell Distribution Width 12.2 % (12.1-15.1); White Blood Count 6.1 10^3/uL (4.0-10.0)
[2021-04-09 13:34] LABS: Alanine Aminotransferase 13 U/L (0-33); Albumin Level 3.6 g/dL (3.5-5.2); Alkaline Phosphatase 97 IU/L (35-105); Anion Gap 13.3 (5-19); Aspartate Amino Transferase 13 U/L (0-32); Blood Urea Nitrogen 8 mg/dL (8-23); Calcium 8.6 mg/dL (8.5-10.5); Carbon Dioxide 27 mmol/L (22-29); Chloride 100 mmol/L (98-107); Globulin 2.2 g/dL (1.3-4.6); Glucose 291 mg/dL (65-115); Osmolality Calculated 293 mOsm/kg (285-295); Potassium 3.3 mmol/L (3.5-5.1); Sodium 137 mmol/L (136-145); Total Bilirubin 1.2 mg/dL (0.15-1.2); Total Protein 5.8 g/dL (6.6-8.7)
== END 2021-04-09 11:44 | disposition home or self-care (01) ==
LOC: RAD 11:48
PROVIDERS: PCP Internal Medicine; Visit Provider Nurse Practitioner Family
DX: I10 Essential (primary) hypertension (principal); R42 Dizziness and giddiness; M25.571 Pain in right ankle and joints of right foot; M79.671 Pain in right foot
CPT/HCPCS: 73610; 73630; 80053; 85025

== ENCOUNTER 2021-09-02 13:04 | Outpatient (CLI) | payer MEDICARE, BC, SELFPAY ==
--- NOTE | 2021-09-02 13:26 | XR_ITS ---
WS: [id number] XR ribs BI 3V* [id number] REASON FOR EXAM: RIB PAIN/DYSPNEA FINDINGS: BILATERAL RIBS: No fracture or other focal bone abnormality. No underlying pleural or lung abnormality. No soft tissue abnormality. XR/XR ribs BI 3V* [id number] IMPRESSION: No rib abnormality.
--- NOTE | 2021-09-02 13:26 | XR_ITS ---
WS: [email or web address] XR chest 2V* [id number] REASON FOR EXAM: RIB PAIN/DYSPNEA FINDINGS: Moderate thoracic scoliosis convex left. Multilevel degenerative disc disease in the thoracic spine. Moderate tortuosity the thoracic aorta without aneurysmal dilatation. Normal heart size. Ventriculoperitoneal shunt tubing overlying the base of the neck, chest, and upper abdomen. Calcified granulomatous disease in both hemithoraces. No acute pulmonary parenchymal or pleural abnormality is identified. XR/XR chest 2V* [id number] IMPRESSION: No acute chest abnormality.
--- NOTE | 2021-09-02 13:26 | XR_ITS ---
WS: [email or web address] XR KUB 21379 REASON FOR EXAM: ABDOMINAL PAIN FINDINGS: No free air or retroperitoneal air. Unremarkable bowel gas pattern. No urinary tract calculi identified. No mass identified. Vascular stents. Bilateral iliac and presumed inferior vena cava. Abdominal shunt tubing is intact with complex redundant coiling of the tubing in the left pelvis. The tip is not readily identifiable. Battery pack over the left lower quadrant with small caliber stimulator lead to the right pelvis. XR/XR KUB 26892 IMPRESSION: No acute abdominal abnormality.
== END 2021-09-02 13:05 | disposition home or self-care (01) ==
LOC: RAD 13:09
PROVIDERS: PCP Internal Medicine; Visit Provider Nurse Practitioner Family
DX: R07.81 Pleurodynia (principal); R06.00 Dyspnea, unspecified; R10.9 Unspecified abdominal pain
CPT/HCPCS: 71046; 71110; 74018

== ENCOUNTER 2021-10-20 09:27 | Outpatient (CLI) | payer MEDICARE, BC, SELFPAY ==
--- NOTE | 2021-10-20 09:46 | NM_ITS ---
WS: [id number] NUCLEAR MEDICINE HIDA SCAN WITH GALLBLADDER EJECTION FRACTION HISTORY: ABDOMINAL PAIN COMPARISON: None available. TECHNIQUE: The patient was intravenously injected with 8.3 mCi of TC99m Mebrofenin. Immediate imaging over the right upper quadrant was followed by 5 minute image and additional images for a total of 60 minutes. Normal uptake of radiotracer throughout the liver. Activity identified in the gallbladder at 20 minutes and well distended by 60 minutes. Activity in the proximal small bowel was seen by 15 minutes. Good washout of the radiotracer from the liver by 60 minutes. The patient then drank 8 ounces of Ensure Plus. Ejection fraction at 60 minutes was 88%. Normal GB ej ection fraction is 35-75%. Post fatty meal symptoms: None. NM/NM hepatobiliary w phar* [id number] IMPRESSION: 1. Normal HIDA scan. 2. Normal gallbladder ejection fraction.
== END 2021-10-20 09:28 | disposition home or self-care (01) ==
LOC: RAD 09:32
PROVIDERS: PCP Nurse Practitioner Family; Visit Provider Nurse Practitioner Family
DX: R10.9 Unspecified abdominal pain (principal)
CPT/HCPCS: 78227; A9537

== ENCOUNTER 2021-10-28 14:39 | Outpatient (CLI) | payer MEDICARE, BC, SELFPAY ==
--- NOTE | 2021-10-28 14:47 | CT_ITS ---
WS: [id number] CT HEAD TECHNIQUE: Noncontrast CT of the head obtained from the skullbase to the vertex. CLINICAL INFORMATION: APHASIA/CHRONIC DIZZINESS COMPARISON: DLP: 1003.[address] scans at [facility] use at least one of these dose optimization techniques: automated e xposure control; mA and/or kV adjustment per patient size (includes targeted exams where dose is matc hed to clinical indication); or iterative reconstruction. FINDINGS: Stable RIGHT parietal shunt catheter with tip in the RIGHT frontal horn near the foramen of Villanueva. T his appears unchanged from previous. Moderate ventriculomegaly is unchanged. No progressed hydrocepha baylee or transependymal edema. Mild small vessel changes. Moderate parenchymal volume loss. Mastoid air cells are well aerated. Mild mucosal thickening in the ethmoid air cells. Paranasal sinuses are well aerated. Normal posterior nasopharynx. CT/CT head wo con* 55764 IMPRESSION: 1. No evidence of intracranial hemorrhage or mass effect. 2. RIGHT parietal shunt catheter with tip near the foramen of Villanueva unchanged from previous. 3. Moderate ventriculomegaly is unchanged. No progressive hydrocephalus. 4. No significant interval changes compared to 2019.
--- NOTE | 2021-10-28 15:53 | XRR_ITS ---
PROCEDURE INFORMATION: Exam: XR Right Foot Exam date and time: 10/28/2021 3:54 PM Age: 75 years old Clinical indication: Pain; Foot; Bilateral; Additional info: Bilateral ft joint pain TECHNIQUE: Imaging protocol: XR Right foot. Views: 3 or more views. COMPARISON: CR XR foot RT min 3V* [id number] 04/09/2021 12:17 PM FINDINGS: Bones/joints: Small to moderate calcified heel spur. Mild tibiotalar joint osteoarthritis. Soft tissues: Normal. XR/XR foot RT min 3V* [id number] IMPRESSION: 1. Small to moderate calcified heel spur. 2. Mild tibiotalar joint osteoarthritis.
--- NOTE | 2021-10-28 15:53 | XRR_ITS ---
PROCEDURE INFORMATION: Exam: XR Left Foot Exam date and time: 10/28/2021 3:54 PM Age: 75 years old Clinical indication: Pain; Foot; Right; Additional info: Bilateral ft joint pain TECHNIQUE: Imaging protocol: XR Left foot. Views: 3 or more views. COMPARISON: No relevant prior studies available. FINDINGS: Bones/joints: Small calcified heel spur. Mild 1st metatarsal tarsal joint osteoarthritis. Soft tissues: Normal. XR/XR foot LT min 3V* [id number] IMPRESSION: 1. Small calcified heel spur. 2. Mild 1st metatarsal tarsal joint osteoarthritis.
== END 2021-10-28 14:40 | disposition home or self-care (01) ==
PROVIDERS: PCP Nurse Practitioner Family; Visit Provider Nurse Practitioner Family
DX: R47.01 Aphasia (principal); R42 Dizziness and giddiness; M25.572 Pain in left ankle and joints of left foot; M25.571 Pain in right ankle and joints of right foot; Z98.2 Presence of cerebrospinal fluid drainage device; G93.89 Other specified disorders of brain; M77.31 Calcaneal spur, right foot; M77.32 Calcaneal spur, left foot; M19.071 Primary osteoarthritis, right ankle and foot; M19.072 Primary osteoarthritis, left ankle and foot
CPT/HCPCS: 70450; 73630

== ENCOUNTER → 2021-11-26 09:01 | Outpatient (BNVA) | payer MEDICARE, BC, SELFPAY | PROVIDERS: PCP Nurse Practitioner Family; Referring Provider Nurse Practitioner Family; Visit Provider Podiatrist Foot & Ankle Surgery | DX: B35.1 Tinea unguium (principal); E11.21 Type 2 diabetes mellitus with diabetic nephropathy; M21.41 Flat foot [pes planus] (acquired), right foot; M20.41 Other hammer toe(s) (acquired), right foot; R09.89 Other specified symptoms and signs involving the circulatory and respiratory systems; M79.671 Pain in right foot; Z79.84 Long term (current) use of oral hypoglycemic drugs; M79.672 Pain in left foot; M21.42 Flat foot [pes planus] (acquired), left foot | CPT/HCPCS: 11721; 99204 ==

== ENCOUNTER → 2021-11-28 09:52 | Outpatient (BNVA) | payer MEDICARE, BC, SELFPAY | PROVIDERS: PCP Nurse Practitioner Family; Visit Provider Internal Medicine Cardiovascular Disease | DX: I25.10 Atherosclerotic heart disease of native coronary artery without angina pectoris (principal); I48.0 Paroxysmal atrial fibrillation; I27.82 Chronic pulmonary embolism; G91.2 (Idiopathic) normal pressure hydrocephalus; I10 Essential (primary) hypertension; R07.9 Chest pain, unspecified | CPT/HCPCS: 99214 ==

== ENCOUNTER 2021-12-17 07:24 | Outpatient (CLI) | payer MEDICARE, BC, SELFPAY ==
[2021-12-17 07:32] VITALS: BMI 35.1
--- NOTE | 2021-12-17 07:32 | ECG_ITS ---
[facility] Test Date: 2021-12-17 Pat Name: Cherelle Sue Department: Room: Gender: Female Rn Labor Delivery: Blank Almeida : 1945 Requested By: August Pretty Order Number: [id number] MD: Eduardo Will M.D. Interpretive Statements NAME OF STUDY: LEXISCAN SESTAMIBI STRESS TEST INDICATION: Chest Pain, PROCEDURE: At the baseline, the EKG revealed normal sinus rhythm with a nonspecific IVCD. Left axis deviation. The baseline blood pressure was 108/88 mm Hg with a heart rate of 75 beats/min. Lexiscan was infused over a period of 20 seconds. A total of 0.4 milligrams of Lexiscan was infused. The stress phase was continued for a total of 5 minutes. Heart rate at the end of the stress phase was 86 with a blood pressure 103/69. The EKG at the peak infusion revealed no significant changes. Sestamibi was injected 20 seconds after the Lexiscan infusion. Blood pressure at the end of the recovery phase was 95/69 with a heart rate of 83 per minute. CONCLUSION: 1. No significant EKG changes with the LexiScan infusion 2. No LexiScan induced chest pain or cardiac arrhythmia 3. Normal blood pressure and heart rate response 4. Sestamibi/sestamibi perfusion scan pending; see separate report. Electronically Signed On 12-19-2021 12:00:47 CDT by Eduardo Will M.D. [email or web address]
--- NOTE | 2021-12-17 07:33 | NMCV_ITS ---
NM rahel perf SPECT r/s* [id number] Cherelle Sue Age: 76 Gender: F : 1945 Exam Date: 12/17/2021 08:47 Ordering Phys: August Pretty MD ([email or web address]) Technologist: AYAD Barcenas Exam Location: [facility] [place] Indications: ISCHEMIC HEART DISEASE STRESS TEST Please see separate stress test report in [facility] for full findings IMAGE PROTOCOL Rest/Stress 1 Lexiscan Day Radiopharmaceutical Dose (mCi) Administration Site Administered by Rest: Tc-99m 10.8 IV AYAD Leggett Sestamibi Stress:Tc-99m 32.9 IV AYAD Leggett Sestamibi Rest: 17-Dec-2021 60 Discovery 630 Stress: 17-Dec-2021 30 Discovery 630 0.4mg Lexiscan. Supine position only as patient was unable to lay prone. SPECT RESULTS Technical Quality: Excellent Raw Data Analysis: Normal Image Corrections: No attenuation or motion correction applied Summed Stress Score: 9 Summed Rest Score: 6 Summed Difference Score: 3 PERFUSION FINDINGS There is moderate to severely decreased tracer uptake in the mid and apical inferior, mid inferolateral, apical lateral and apical segments. Some reversibility was noted in the apical and mid inferior region at rest FUNCTIONAL RESULTS (calculated via Gated SPECT) Stress Image LV EF (%): 81 Stress EDV (mL):57 TID: 1.26 Stress ESV (mL):11 FUNCTIONAL FINDINGS: Segmental wall motion analysis revealing no gross wall motion abnormalities IMPRESSIONS 1. Myocardial perfusion imaging revealing areas of persistent decreased tracer uptake in the inferior, inferolateral and apical regions with some reversibility suggesting myocardial scarring with ischemia in the distribution of the right coronary artery and circumflex artery. Elevated transient ischemic dilatation ratio also is suggestive of endocardial ischemia. 2. Normal LV ejection fraction of 81%. 3. LV wall motion analysis revealing no gross wall motion normalities 4. Normal LV volume Compared to the previous study from 06/15/2019 the area of ischemia appears to be new Dr Eduardo Will MD [facility] (Electronically Signed) Final Date: 17 December 2021 14:14 S
[2021-12-17] MEDS: regadenoson 0.4 Mg/5 ml Syringe IVP (09:32)
[2021-12-17 09:40] VITALS: BP 95/69; PULSE 85
== END 2021-12-17 07:25 | disposition home or self-care (01) ==
LOC: CDL 07:27
PROVIDERS: PCP Nurse Practitioner Family; Visit Provider Internal Medicine Cardiovascular Disease
DX: I25.9 Chronic ischemic heart disease, unspecified (principal); I25.10 Atherosclerotic heart disease of native coronary artery without angina pectoris
CPT/HCPCS: 78452; 93017; A9500; J2785

== ENCOUNTER 2021-12-19 11:31 | Outpatient (CLI) | payer MEDICARE, BC, SELFPAY ==
--- NOTE | 2021-12-19 11:52 | XR_ITS ---
WS: [id number] XR wrist RT 2V [id number] REASON FOR EXAM: R WRIST PAIN FINDINGS: No fracture or focal bone lesion. Mild to moderate narrowing of the radial scaphoid joint with subchondral sclerosis in the subarticula r radius. Significant widening of the scapholunate interval. Obliteration of the radial lunate joint space with subchondral sclerosis in the radius and lunate. Narrowing with subchondral sclerosis and marginal osteophytosis of the radial ulnar joint. 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
== END 2021-12-19 11:32 | disposition home or self-care (01) ==
LOC: RAD 11:34
PROVIDERS: PCP Nurse Practitioner Family; Visit Provider Nurse Practitioner Family
DX: M19.031 Primary osteoarthritis, right wrist (principal); M25.531 Pain in right wrist
CPT/HCPCS: 73100

== ENCOUNTER 2021-12-31 11:00 | Outpatient (CLI) | payer MEDICARE, BC, SELFPAY ==
--- NOTE | 2021-12-31 11:06 | MM_ITS ---
WS: [email or web address] Bilateral screening 3D tomosynthesis digital mammogram, 12/31/2021 Clinical Data: SCREENING Comparison: None. Findings: The breast parenchymal pattern shows fat replacement. No spiculated masses or clustered calcification s are seen. There are no secondary signs of carcinoma. There are scattered benign calcifications thro ughout both breasts. Mole markers are on both breasts. MM/[place] [id number] Impression: 1. Negative bilateral mammogram with no prior exam for review. 2. Recommend annual screening mammograms. BIRADS: 1-Negative FOLLOW UP: 1 Year Follow-up The CAD [employer] was used.
== END 2021-12-31 11:01 | disposition home or self-care (01) ==
PROVIDERS: PCP Family Medicine; Visit Provider Nurse Practitioner Family
DX: Z12.31 Encounter for screening mammogram for malignant neoplasm of breast (principal)
CPT/HCPCS: 77063; 77067

== ENCOUNTER 2022-01-12 08:13 | Outpatient (CLI) | payer MEDICARE, BC, SELFPAY ==
--- NOTE | 2022-01-12 09:30 | USCV_ITS ---
LinetteCherelle Age: 76 Gender: F : 1945 Exam Date: 01/12/2022 08:45 Ordering Phys: Leonel Nguyễn DPM Technologist: Herminio Kapadia Exam Location: [facility] [place] Indication: pad RIGHT LEFT Brachial 106.00 mmHg Brachial 108.00 mmHg Pressure (mmHg) Waveform Pressure (mmHg) Waveform 132.00 Above Knee 140.00 155.00 Below Knee 155.00 111.00 [employer] 132.00 110.00 DPA 125.00 1.00 Ankle/Brachial Index 1.20 121.00 Pre-Exercise Toe Pressure 142.00 Pre-Exercise Toe/Brachial Index 1.30 1.10 FINDINGS Resting CHAD of 1.0 on the right side and 1.2 on the left side Resting TBI of 1.1 on the right and 1.3 on the left PVR waveforms relative found to be normal bilaterally except at the right ankle CONCLUSIONS Normal resting ABIs and TBIs , suggesting no significant arterial obstructions bilaterally. Abnormal PVR waveforms at the right ankle, could be a technically issue. Clinical correlation is recommended No similar previous studies are available for comparison Dr Eduardo Will MD [facility] (Electronically Signed) Final Date: 12 January 2022 22:28 S
== END 2022-01-12 08:14 | disposition home or self-care (01) ==
LOC: RAD 08:14
PROVIDERS: PCP Family Medicine; Visit Provider Podiatrist Foot & Ankle Surgery
DX: R09.89 Other specified symptoms and signs involving the circulatory and respiratory systems (principal); I73.9 Peripheral vascular disease, unspecified
CPT/HCPCS: 93923

== ENCOUNTER → 2022-01-12 08:13 | Outpatient (BNVA) | payer MEDICARE, BC, SELFPAY | PROVIDERS: PCP Family Medicine; Referring Provider Nurse Practitioner Family; Visit Provider Student in an Organized Health Care Education/Training Program | DX: M19.139 Post-traumatic osteoarthritis, unspecified wrist (principal) | CPT/HCPCS: 99203 ==

== ENCOUNTER 2022-01-14 15:46 | Outpatient (CLI) | payer MEDICARE, BC, SELFPAY ==
[2022-01-14 16:29] LABS: Basophils # 0.1 10^3/uL (0.0-0.1); Basophils % 1.1 %; Eosinophils # 0.2 10^3/uL (0.0-0.8); Eosinophils % 3.7 %; Hemoglobin 14.5 g/dL (11.5-15.3); Lymphocytes # 2.1 10^3/uL (0.8-4.8); Lymphocytes % 34.6 %; Mean Corpuscular HGB Conc 33.7 g/dL (30.0-36.0); Mean Corpuscular Hemoglobin 31.3 pg (28.0-34.0); Mean Corpuscular Volume 92.9 fl (81-99); Mean Platelet Volume 9.7 fL (7.4-10.4); Monocytes # 0.3 10^3/uL (0.2-0.9); Monocytes % 5.2 %; Neutrophils # 3.42 10^3/uL (1.8-7.7); Neutrophils % 55.2 %; Nucleated Red Blood Cells % 0 %; Platelet Count 238 10^3/cmm (130-400); Red Blood Count 4.63 10^6/uL (4.1-5.3); Red Cell Distribution Width 12.6 % (12.1-15.1); White Blood Count 6.2 10^3/uL (4.0-10.0)
[2022-01-14 16:47] LABS: INR 1.05 (0.83-1.21)
[2022-01-14 16:54] LABS: Anion Gap 16.8 (5-19); Blood Urea Nitrogen 11 mg/dL (8-23); Carbon Dioxide 23 mmol/L (22-29); Chloride 103 mmol/L (98-107); Glucose 191 mg/dL (65-115); Osmolality Calculated 293 mOsm/kg (285-295); Potassium 3.8 mmol/L (3.5-5.1); Sodium 139 mmol/L (136-145)
== END 2022-01-14 15:47 | disposition home or self-care (01) ==
PROVIDERS: PCP Family Medicine; Visit Provider Internal Medicine Cardiovascular Disease
DX: I10 Essential (primary) hypertension (principal); I25.10 Atherosclerotic heart disease of native coronary artery without angina pectoris; R07.9 Chest pain, unspecified
CPT/HCPCS: 80048; 85025; 85610

== ENCOUNTER 2022-01-15 10:53 | Observation (INO) | payer MEDICARE, BC, SELFPAY ==
[2022-01-15] VITALS (17 sets, daily range): BP systolic 98–147; BP diastolic 46–87; PULSE 63–79; RESP 13–24; TEMP 36.9; O2SAT 94–100; BMI 35.6
--- NOTE | 2022-01-15 06:00 | XACV_ITS ---
Exam Room: 2 Ht: 165 cm Wt: 97 kg BSA: 2.15 m2 Gender: Female : 1945 Any Known Allergies: No known allergies Exam Priority: Routine Procedure(s): Procedure Description: Diagnostic procedure Procedure Description: PCI procedure Procedure Description: Coronary IVUS Procedure Description: Drug Eluting Coronary Stent Procedure Description: PTCA Procedure Description: Miscellaneous Procedure Description: ACT Procedure Description: Coronary Angiography Diagnostic Cath Status: Elective Diagnostic Findings * Left Main is short and has no disease. * Left Anterior Descending has mild 30-40% proximal stenosis. * Right Coronary Artery is codominant, small size vessel with diffuse disease. * INDICATION: 76-year-old woman history of coronary disease, dyslipidemia, hypertension, obesity, prior pulmonary emboli, history of hydrocephalus with ventricular drain placement, longstanding anticoagulation and paroxysmal atrial fibrillation who has been having chest pressure and discomfort for few months that is getting worse. Patient underwent stress test that was abnormal and showed scar and ischemia in the circumflex artery and RCA territory. Plan for coronary angiogram with possible percutaneous coronary intervention. * Proximal to * mid Circumflex: significant 80% stenosis, CINTHYA: 3 flow. * Distal Circumflex: moderate 50% stenosis, CINTHYA: 3 flow. * First Obtuse Marginal Branch Segment: significant 80% stenosis, CINTHYA: 3 flow. * Coronary angiography shows co-dominance. PCI Status: Elective PCI Indication: Other Interventional Findings * Procedure detail: We engaged left main artery with XB 3.0 guide catheter. IV heparin was administered to maintain ACT above 250 S. OM stenosis was crossed with a 0.014 run-through guidewire. We first performed IVUS to size the vessel. OM stenosis was predilated with 2.5 x 12 mm semicompliant balloon. We then placed 2.75 x 15 mm resolute Analia drug-eluting stent. We then turned our attention to proximal to mid left circumflex artery stenosis. It was predilated with first a 2.5 x 12 mm semicompliant balloon. This was followed by predilation with 3.5 x 15 mm semicompliant balloon. We then placed 4.0 x 26 mm resolute Analia drug-eluting stent. Proximal portion of the stent was postdilated with 4.5 x 12 mm NC balloon. At this time final angiogram was performed that showed excellent stent expansion, no residual stenosis and CINTHYA-3 flow.. * Mid Circumflex: 80% stenosis treated with a AB TREK 3.50X15 RX BALLOON, MDT R ANALIA 4.0X26 BRANDIE, and MDT NC EUPHORA RX [id number] BALLOON. 0% residual stenosis, CINTHYA: 3 flow. * First Obtuse Marginal Branch Segment: 80% stenosis treated with a AB TREK 2.50X12 RX BALLOON, and MDT R ANALIA 2.75X15 BRANDIE. 0% residual stenosis, CINTHYA: 3 flow. Conclusions 1. Severe proximal to mid left circumflex artery stenosis. S/p successful revascularization with BRANDIE x1. Severe OM stenosis s/p revascularization with BRANDIE x1.. 2. Peoximal to Mid Circumflex was treated with a Balloon, Drug Eluting Stent, and Balloon. 3. First Obtuse Marginal Branch Segment was treated with a Balloon, and Drug Eluting Stent. Recommendations * We will continue Xarelto. We will add Plavix. * High intensity statin therapy. * Aggressive risk factor modification. * Outpatient cardiology follow-up in 4-week. Interventional RX Recommendation: PCI w/o planned CABG Diagnostic RX Recommendation: PCI w/o planned CABG Anticoagulation: Heparin Pressures Phase:Rest AO : 138 / 70 ( 102 ) @ 9:40:00 AM 129 / 75 ( 101 ) @ 9:44:00 AM Clinical Evaluation EBL: 5mL-10mL Procedural Details Procedure Consent Obtained. Admit Source: Out Patient. Pre-Procedure Time Out. Identified patient by full name and date of as verbalized by the patient/guarantor. Does the consent match the physician's order: Yes. Accurate & Complete Informed Consent: Yes. Inpatient/Outpatient History & Physical on Chart: Yes. If H&P is completed, is and addenduem needed: No; If yes, is the addendum complete: No. Visualize and Verify Site with Patient/Guarantor: N/A. Relevant Radiology Images available: N/A. The risks, benefits, and alternatives of sedation and/or procedure were discussed by physician. The patient agrees to continue. Procedure started. [facility] Clinical Fraility Score: 3: Managing Well. Mental Health Director Indications: Worsening Angina. Chest Pain Symptom Assessment: Typical Angina Symptoms. Correct patient, site and procedure confirmed by cath team. Current diagnosis: Chest Pain Abnormal stress test. PERRLA. Strong, equal hand software engineer backend bilaterally. Lungs clear x 5 lobes. IV Site on Arrival: 20 gauge in the left forearm. IV Fluids: 0.9% NaCl at KVO. 0 mL infused prior to r and d lab technician. Pre Procedural Pulses: bilateral radial was 2+. Pre Procedural Pulses: bilateral posterior tibial was Doppled. Pre Procedural Pulses: bilateral dorsalis pedis was Doppled. Oxygen started at 2liters/min via nasal canula. right radial was prepped with chloroprep then draped in the usual sterile fashion. right groin was prepped with chloroprep then draped in the usual sterile fashion. Physician notified. Baseline sample Acquired. HR: 62 BPM. Physician arrived. Physician scrubbed in. Immediate Pre-Procedure Time Out. Correct Patient: Yes; Correct Procedure: Yes; Correct Site: Yes; Correct Patient Position: Yes; Correct Supplies: Yes; Dried Flammable Prep: No; Blood Products Available: No;. Lidocaine 1% infiltrated to the right radial. Arterial access obtained. A 5 qatari TIG catheter in over wire. Multiple views taken of left coronary artery. Catheter redirected to the RCA. Multiple views taken of right coronary artery. Catheter removed over the glide wire. 6 qatari XB 3 guide catheter was inserted over the glidewire. Glidewire out. Runthrough guidewire was advanced through the guide catheter to lesion in the mid Circ. IVUS catheter advanced over runthrough wire to lesion in the mid circ. IVUS performed of mid circumflex. IVUS catheter out over runthough wire. Runthrough repositioned to OM. Guidewire advanced across lesion. Runthrough wire out through guide catheter to reshape. Runthrough repositioned to OM. Angiography performed. Inflation number : 1 A AB TREK 2.50X12 RX BALLOON was prepped and advanced across the 1st Ob Taylor , then inflated to 10 JOSE for 0:17 seconds. Balloon out. Stent balloon in over wire. Stent balloon out over wire, stent balloon intact. 6Fr guideliner catheter advanced over runthrough wire. Patient's family updated. Inflation Number : 2 A MDT R ANALIA 2.75X15 BRANDIE -Lot Number# [id number] was prepped and advanced across the 1st Ob Taylor. The stent was deployed at 12 JOSE for 0:16 seconds. EXP 04-27-24. Stent balloon out over wire. Guideliner out over runthrough wire. Runthrough wire redirected to mid circumflex. Guidewire advanced across lesion. Inflation number : 1 A AB TREK 3.50X15 RX BALLOON was prepped and advanced across the Mid CX , then inflated to 8 JOSE for 0:15 seconds. Inflation number: 2 The AB TREK 3.50X15 RX BALLOON was reinflated across the Mid CX, to 10 JOSE for 0:26 seconds. Balloon out. AP pads applied. ACT drawn. Results 290 seconds. Therapeutic limits - pre-heparin administration 90-150 seconds and monitoring heparin during a vascular procedure >250 seconds. Angiography performed. Inflation Number : 3 A MDT R ANALIA 4.0X26 BRANDIE -Lot Number#[id number] was prepped and advanced across the Mid CX. The stent was deployed at 12 JOSE for 0:25 seconds. EXP 07-22-22. Stent balloon out over wire. Angiography performed, checking results. Inflation number : 4 A MDT DEB EUPHORA RX [id number] BALLOON was prepped and advanced across the Mid CX , then inflated to 12 JOSE for 0:17 seconds. Balloon out. Runthrough wire out. Angiography performed. Checking results. Guide catheter out. A TR Band was successful obtaining hemostatsis at the Right Radial artery insertion site. Post Procedure: Pulses reassessed and unchanged. PERRLA. Strong, equal hand software engineer backend bilaterally. No VTE prophylaxis required. Complications: None. Estimated blood loss: 5mL-10mL. Responsiveness - Normal response to verbal stimuli; alert and oriented, PERRLA. Airway - Unaffected, no intervention required; spontaneous ventilation. Circulation: W/N/L, pulses unchanged. Nausea/Vomiting: N/A. Total IV fluids: 76 mL. Medication's Wasted: Lidocaine 1% = 2 mL. Medication's Wasted: Heparin = 1000unit. Medication's Wasted: Nitro = 49.6 mg. Medication's Wasted: Other = Fentanyl 50 mcg. Post-op diagnosis: Severe mid circumflex stenosis, Severe 1st OM stenosis. Procedure completed. Patient transferred by wheelchair to ICU. Vital chart was stopped. Access Site Site: Right Radial artery Sheath Size: 6 Fr Hemostasis Method: TR Band Hemostasis Success: Successful Procedure Medications Start: 7:56 AM Stop: 7:56 AM Medication: Versed Amount: 1 mg Route: I.V. Start: 7:56 AM Stop: 7:56 AM Medication: Fentanyl Amount: 50 mcg Route: I.V. Start: 8:06 AM Stop: 8:06 AM Medication: Nitrogylcerin Amount: 200 mcg Route: I.A. Start: 8:08 AM Stop: 8:08 AM Medication: Heparin Amount: 5000 units Route: I.V. Start: 8:17 AM Stop: 8:17 AM Medication: Heparin Amount: 3000 units Route: I.V. Start: 8:27 AM Stop: 8:27 AM Medication: Heparin Amount: 1000 units Route: I.V. Start: 8:41 AM Stop: 8:41 AM Medication: Heparin Amount: 1000 units Route: I.V. Start: 8:46 AM Stop: 8:46 AM Medication: Heparin Amount: 1000 units Route: I.V. Start: 8:51 AM Stop: 8:51 AM Medication: Aggrastat 12.5 mg/250 mL Amount: 49 ml Route: I.V. bolus Start: 8:52 AM Stop: 8:52 AM Medication: Aggrastat 12.5 mg/250 mL Amount: 17.5 ml/hr Route: I.V. bolus Start: 8:52 AM Stop: 8:52 AM Medication: Nitrogylcerin Amount: 200 mcg Route: I.A. Start: 9:00 AM Stop: 9:00 AM Medication: Aspirin Amount: 325 mg Start: 9:00 AM Stop: 9:00 AM Medication: Plavix Amount: 600 mg Route: P.O. I, the attending physician, have reviewed and verified all procedure medications. Yes, all medications given per verbal order History/Risk Factors Hypertension: Yes Dyslipidemia: Yes Peripheral Arterial Disease (PAD): No Myocardial Infarction (RI): No Obesity: No Renal Disease: No Prior Interventions PCI: No CABG: No Valve Surgery: No Report Signatures Finalized by Milton Irizarry MD on 01/27/2022 12:05 PM
[2022-01-15] MEDS: diphenhydrAMINE 50 mg Capsule PO (06:41)
--- NOTE | 2022-01-15 07:58 | W.PM.OPSUD ---
Surgery/Procedure H&P Update DATE OF PROCEDURE: January 15, 2022 DATE H&P PERFORMED: 11/28/21 H&P UPDATE INFORMATION: I have reviewed H&P completed within last 30 days, I have examined patient prior to procedure and No changes to prior documentation CHANGES TO PREVIOUS DOCUMENTATION: 76-year-old woman history of coronary disease, dyslipidemia, hypertension, obesity, prior pulmonary emboli, history of hydrocephalus with ventricular drain placement, longstanding anticoagulation and paroxysmal atrial fibrillation who has been having chest pressure and discomfort for few months that is getting worse. Patient underwent stress test that was abnormal and showed scar and ischemia in the circumflex artery and RCA territory. Plan for coronary angiogram with possible percutaneous coronary intervention PREOP DIAGNOSIS: Worsening angina PRIMARY INDICATION FOR PROCEDURE: Worsening angina/abnormal stress test PLANNED PROCEDURE: Operation Date: 01/15/22 07:00 Proposed Procedures p [facility] 64348,R07.9,I10, ASHD I25.10(Not Applicable) - Milton Irizarry M.D Possible percutaneous coronary intervention PATIENT REASSESSED PRIOR TO SEDATION, WITH NO CHANGE NOTED: Yes PHYSICAL EXAM: alert, oriented x 3, clear to auscultation bilaterally and regular rate & rhythm AIRWAY EVAL/ANESTHESIA PLAN: ASA III, Local Anesthesia, Risks, benefits & alternatives of sedation and/or procedure discussed and Patient agrees to continue as planned ADDITIONAL INFORMATION: Possible PCI
[2022-01-15] MEDS: sodium chloride 0.9% 1,000 ML 100 ML IV (12:02)
--- NOTE | 2022-01-15 13:53 | PC.NURSE ---
TR band off, no hematoma, small bruising that was present from cath lab tech. 2+ radial and ulnar pulses, no pain or discomfort.
[2022-01-15] MEDS: acetaminophen 325 mg Tablet 650 MG PO (14:04)
--- NOTE | 2022-01-15 15:19 | PC.NURSE ---
Aggrostat off at 1500
--- NOTE | 2022-01-15 23:11 | PC.NURSE ---
Pt moved from ICU 3 to ICU 6 due to patient in ICU 4 yelling out at staff.
--- NOTE | 2022-01-15 23:13 | PC.NURSE ---
Pt ambulated from ICU 3 to ICU 6. Pt now sitting up on side of bed.
[2022-01-16] VITALS (12 sets, daily range): BP systolic 103–132; BP diastolic 45–61; PULSE 65–85; RESP 13–19; TEMP 36.6; O2SAT 94–100
--- NOTE | 2022-01-16 00:16 | PC.NURSE ---
Pt tells me that she has an implanted bladder pacemaker in her right buttock for urinary incontinence.
[2022-01-16 05:35] LABS: Basophils # 0.1 10^3/uL (0.0-0.1); Basophils % 1.3 %; Eosinophils # 0.4 10^3/uL (0.0-0.8); Eosinophils % 6.8 %; Hematocrit 42.8 % (37.0-47.0); Hemoglobin 13.9 g/dL (11.5-15.3); Lymphocytes % 36.4 %; Mean Corpuscular HGB Conc 32.5 g/dL (30.0-36.0); Mean Corpuscular Hemoglobin 31.5 pg (28.0-34.0); Mean Corpuscular Volume 97.1 fl (81-99); Mean Platelet Volume 10.6 fL (7.4-10.4); Monocytes # 0.4 10^3/uL (0.2-0.9); Monocytes % 6.4 %; Neutrophils # 2.65 10^3/uL (1.8-7.7); Neutrophils % 48.7 %; Nucleated Red Blood Cells % 0 %; Platelet Count 160 10^3/cmm (130-400); Red Blood Count 4.41 10^6/uL (4.1-5.3); Red Cell Distribution Width 12.6 % (12.1-15.1); White Blood Count 5.4 10^3/uL (4.0-10.0)
--- NOTE | 2022-01-16 05:42 | PC.NURSE ---
Pt resting quietly in bed. No complaints of chest pain. Respirations are even and unlabored.
[2022-01-16 05:58] LABS: Blood Urea Nitrogen 11 mg/dL (8-23); Calcium 8.5 mg/dL (8.5-10.5); Carbon Dioxide 20 mmol/L (22-29); Chloride 106 mmol/L (98-107); Glucose 158 mg/dL (65-115); Osmolality Calculated 287 mOsm/kg (285-295); Sodium 137 mmol/L (136-145)
[2022-01-16 06:00] LABS: Anion Gap 14.7 (5-19); Potassium 3.7 mmol/L (3.5-5.1)
--- NOTE | 2022-01-16 06:58 | P.SS_ITS ---
Short Stay Summary Providers Date of Admit/Discharge: 01/15/22 Attending Provider: Milton Irizarry M.D Primary Care Provider: Tatum Daniels DO Chief Complaint: Worsening angina/abnormal stress test HPI History of Present Illness 76-year-old woman history of coronary disease, dyslipidemia, hypertension, obesity, prior pulmonary emboli, history of hydrocephalus with ventricular drain placement, longstanding anticoagulation and paroxysmal atrial fibrillation who has been having chest pressure and discomfort for few months that is getting worse.? Patient underwent stress test that was abnormal and showed scar and ischemia in the circumflex artery and RCA territory.? Plan for coronary angiogram with possible percutaneous coronary intervention Review of Systems Const: Denies: fever(s) or chills Eyes: Denies: change in vision Card: Reports: chest pain, lightheadedness and dyspnea on exertion; Denies: palpitations, swelling of feet/ankles or orthopnea Resp: Denies: dyspnea, productive cough or non-productive cough GI: Denies: abdominal pain, nausea, vomiting or GI cramping Musc: Reports: neck pain, back pain and joint pain Neuro: Reports: headache(s); Denies: dizziness Psych: Reports: anxiety and depression Piyush/Lymph: Reports: easy bruising and easy bleeding Home Meds/Allergies Home Medications and Allergies Home Medications Medication Instructions Recorded Confirmed Type atorvastatin 40 mg tablet 40 mg PO DAILY 11/28/21 01/26/22 History vilazodone 20 mg tablet (Viibryd) 20 mg PO DAILY 11/28/21 01/26/22 History cholecalciferol (vitamin D3) 250 250 mcg PO DAILY 01/23/22 01/26/22 History mcg (10,000 unit) capsule dapagliflozin 10 mg tablet 10 mg PO DAILY 01/23/22 01/26/22 History (Farxiga) metformin 500 mg tablet 1,000 mg PO DAILY 01/23/22 01/26/22 History (Glucophage) valsartan 160 mg tablet 80 mg PO DAILY 01/23/22 01/26/22 History Allergies Allergy/AdvReac Type Severity Reaction Status Date / Time No Known Allergies Allergy Verified 01/26/22 09:08 PFSH Acute PFSH: Medical History ASHD (arteriosclerotic heart disease) Asymptomatic coronary heart disease Atherosclerosis of arteries Atrial fibrillation Bilateral carotid artery stenosis entered in error Chest pain Coronary artery disease Depression Hydrocephalus Hyperlipidemia Hypertension Stable Lumbar disc disease with radiculopathy Obesity Pulmonary embolism SLAC (scapholunate advanced collapse) of wrist Surgical History History of adjustable gastric banding History of heart artery stent History of hip replacement, total Left, Right Hx of appendectomy Family History Other Adopted Social History Smoking and tobacco status: never smoked Alcohol intake: never Vitals/I&O/Wt Last Vital Signs Temp 97.8 F 01/16/22 05:00 Pulse 70 01/16/22 06:15 Resp 16 01/16/22 06:15 BP 111/45 01/16/22 06:15 Pulse Ox 99 01/16/22 06:15 O2 Del Method 01/16/22 06:15 01/15/22 01/15/22 01/16/22 14:59 22:59 06:59 Intake Total 360 / 360 1043.333 / 1403.333 240 / 1643.333 Balance 360 / 360 1043.333 / 1403.333 240 / 1643.333 Weight last 48 hrs Weight 214 lb Physical Exam Narrative: GENERAL: Patient is alert, awake and oriented x3. [] NECK: No jugular vein distension. [] HEENT: No cyanosis. No icterus. No pallor. [] HEART: Regular S1 and S2. No murmur, rub or gallop. [] LUNGS: Clear to auscultate bilaterally. [] ABDOMEN: Soft, nontender and nondistended. Positive bowel sounds. No guarding, rebound or tenderness. [] CENTRAL NERVOUS SYSTEM: Grossly nonfocal. [] EXTREMITIES: Lower extremities with 1+ edema bilaterally. Pulses palpable in the lower extremities, both dorsalis pedis and posterior tibial. [] Hospital Course Hospital Course Coronary angiogram showed severe proximal to mid left circumflex artery stenosis and severe OM stenosis. She underwent successful revascularization with BRANDIE x2. She was put on Plavix and continued on Xarelto. Patient was observed overnight and was discharged home in a stable condition. SSS Data Data Completed and Pending: Pending at discharge Category Date Time Status PROPULSION GENERATOR REPAIRER request for service Routin e Exams 01/15/22 06:00 Taken Discharge Plan Discharge Patient Disposition: Home Condition: Stable Prescriptions: New clopidogrel 75 mg Tablet 75 mg PO DAILY Qty: 90 3RF rivaroxaban 20 mg tablet 20 mg PO DAILY Qty: 90 3RF Rx Instructions: must administer with evening meal Continued (DME) Diabetic Sandal with 3 inserts See Rx Instructions .Route .MEDSUPPLY Qty: 1 0RF Rx Instructions: As directed atorvastatin 40 mg tablet 40 mg PO DAILY Viibryd 20 mg tablet 20 mg PO DAILY Discontinued Xarelto 10 mg tablet 10 mg PO DAILY irbesartan 300 mg tablet 300 mg PO DAILY No Action Farxiga 10 mg tablet 10 mg PO DAILY cholecalciferol (vitamin D3) 250 mcg (10,000 unit) capsule 250 mcg PO DAILY Glucophage 500 mg tablet 1,000 mg PO DAILY Hold Instructions: Resume on 01/18/22. Label Comments: only taking 500mg daily valsartan 160 mg tablet 80 mg PO DAILY Discharge Orders: Discharge Order (Routine); Ordered 01/16/22 Ordered By: Milton Irizarry Referrals: Milton Irizarry M.D [Physician] - 6 Weeks (Follow up appointment with Catherine Moran to determine cardiology appointment to follow. ) Catherine Moran FNP [Nurse Practitioner] - 7-10 days (This appointment has been scheduled : Catherine Moran APN nurse for cardiology ,post angiogram follow up /hospital December -time of 11:15 am Catherine to determine follow up for supervisor fruit grading appointment.) Discharge Diet: Diabetic Discharge Activity: Increase activity as tolerated Patient Instructions: Clopidogrel (By mouth) (Plavix), Rivaroxaban (By mouth) (Xarelto, Xarelto Starter Pack), Coronary Angioplasty (DC), Basic Carbohydrate Counting (DC), Opioid Safety, Post Angiogram Home Care Instructions Attestations Medical Necessity Statement*: Care not expected to cross 2 midnights. Patient underwent successful revascularization of left circumflex artery and OM and was observed overnight and discharged home in a stable condition. Time Spent in Patient Care*: less than 30 min Quality Metrics Clinical Quality Measures: [ No reported AMI, CVA or VTE this stay ] Coding Level of Care Code Acute Senior [employer] Soa Developer for Edvin Baldwin
[2022-01-16] MEDS: aspirin 81 mg EC Tablet PO (08:37)
[2022-01-16] MEDS: atorvastatin 40 mg Tablet PO (08:37)
[2022-01-16] MEDS: clopidogrel 75 mg Tablet PO (08:37)
== END 2022-01-16 09:45 | disposition home or self-care (01) ==
LOC: ICU 11:00
PROVIDERS: Admitting Provider Internal Medicine; PCP Family Medicine; Visit Provider Internal Medicine
DX: I25.110 Atherosclerotic heart disease of native coronary artery with unstable angina pectoris (principal); I48.0 Paroxysmal atrial fibrillation; E78.5 Hyperlipidemia, unspecified; I10 Essential (primary) hypertension; Z79.01 Long term (current) use of anticoagulants; Z86.711 Personal history of pulmonary embolism
CPT/HCPCS: 36415; 80048; 85025; 85347; 92978; 93454; 96360; 99152; 99153; C1725; C1753; C1769; C1874; C1887; C1894; C9600; G0378; J1644; J2250; J3010; J3490; J7030; Q0163; Q9967

== ENCOUNTER → 2022-01-23 11:12 | Outpatient (BNVA) | payer MEDICARE, BC, SELFPAY | PROVIDERS: PCP Nurse Practitioner Family; Visit Provider Nurse Practitioner Family | DX: I25.10 Atherosclerotic heart disease of native coronary artery without angina pectoris (principal); I10 Essential (primary) hypertension | CPT/HCPCS: 80048; 99213; 99214 ==

== ENCOUNTER → 2022-01-26 08:59 | Outpatient (BNVA) | payer MEDICARE, BC, SELFPAY | PROVIDERS: PCP Nurse Practitioner Family; Visit Provider Podiatrist Foot & Ankle Surgery | DX: E11.8 Type 2 diabetes mellitus with unspecified complications (principal); R09.89 Other specified symptoms and signs involving the circulatory and respiratory systems; E11.21 Type 2 diabetes mellitus with diabetic nephropathy; B35.1 Tinea unguium; M21.41 Flat foot [pes planus] (acquired), right foot; M20.41 Other hammer toe(s) (acquired), right foot; M21.42 Flat foot [pes planus] (acquired), left foot; Z79.84 Long term (current) use of oral hypoglycemic drugs | CPT/HCPCS: 99213; 99214 ==

== ENCOUNTER → 2022-02-23 12:21 | Outpatient (BNVA) | payer MEDICARE, BC, SELFPAY | PROVIDERS: PCP Nurse Practitioner Family; Visit Provider Internal Medicine | DX: I25.10 Atherosclerotic heart disease of native coronary artery without angina pectoris (principal); I48.0 Paroxysmal atrial fibrillation; I27.82 Chronic pulmonary embolism; I10 Essential (primary) hypertension; R26.89 Other abnormalities of gait and mobility; G91.2 (Idiopathic) normal pressure hydrocephalus; G31.84 Mild cognitive impairment of uncertain or unknown etiology | CPT/HCPCS: 99214 ==

== ENCOUNTER → 2022-04-14 09:44 | Outpatient (BNVA) | payer MEDICARE, BC, SELFPAY | PROVIDERS: PCP Nurse Practitioner Family; Visit Provider Internal Medicine Cardiovascular Disease | DX: I25.10 Atherosclerotic heart disease of native coronary artery without angina pectoris (principal); I48.0 Paroxysmal atrial fibrillation; I10 Essential (primary) hypertension; E78.5 Hyperlipidemia, unspecified; I27.82 Chronic pulmonary embolism | CPT/HCPCS: 99214 ==

== ENCOUNTER → 2022-06-02 13:38 | Outpatient (BNVA) | payer MEDICARE, BC, SELFPAY | PROVIDERS: PCP Nurse Practitioner Family; Visit Provider Internal Medicine | DX: I48.0 Paroxysmal atrial fibrillation (principal); Z79.01 Long term (current) use of anticoagulants; I27.82 Chronic pulmonary embolism; I25.10 Atherosclerotic heart disease of native coronary artery without angina pectoris; G91.2 (Idiopathic) normal pressure hydrocephalus; G31.84 Mild cognitive impairment of uncertain or unknown etiology; I10 Essential (primary) hypertension | CPT/HCPCS: 99214 ==

== ENCOUNTER 2022-07-13 11:21 | Outpatient (CLI) | payer MEDICARE, BC, SELFPAY ==
--- NOTE | 2022-07-13 12:17 | XRR_ITS ---
PROCEDURE INFORMATION: Exam: XR Lumbosacral Spine Exam date and time: 07/13/2022 12:27 PM Age: 76 years old Clinical indication: Patient HX: Chronic low back pain for several years; Additional info: Lumbar back pain TECHNIQUE: Imaging protocol: Radiologic exam of the lumbosacral spine. Views: 6 or more views. Including flexion and extension views. COMPARISON: CT abdomen pelvis w con* [id number] 03/21/2018 1:00 PM FINDINGS: Tubes, catheters and devices: There is a sacral neural stimulator on the right. There is tortuous tubing coursing throughout the upper and lower abdomen. Bones/joints: There is grade 1 anterolisthesis of L5 on S1. There is grade 1 anterolisthesis of L4 on L5. The degree of anterolisthesis does not change with flexion or extension. Mild convex left curvature of the upper lumbar spine. There is moderate to severe diffuse lumbar disc narrowing. Moderate to severe diffuse lumbar facet spondylosis, greater at the lower lumbar levels. Bilateral hip prostheses are partially imaged. The visible portion of the sacrum and SI joints are unremarkable. Soft tissues: Unremarkable. Vasculature: Bilateral common and external iliac vein stents are present. XR/XR lumbar spine 6V w f/e [id number] IMPRESSION: 1. Severe lumbar disc and facet degeneration. 2. Anterolisthesis of L5 on S1 and L4 on L5 demonstrates no change through flexion and extension. 3. Incidental findings above.
== END 2022-07-13 11:22 | disposition home or self-care (01) ==
PROVIDERS: PCP Nurse Practitioner Family; Visit Provider Nurse Practitioner Family
DX: M54.50 Low back pain, unspecified (principal); G89.29 Other chronic pain; M47.896 Other spondylosis, lumbar region
CPT/HCPCS: 72114

== ENCOUNTER 2022-07-23 07:10 | Outpatient (CLI) | payer MEDICARE, BC, SELFPAY ==
--- NOTE | 2022-07-23 07:00 | USCV_ITS ---
Cherelle Sue Age: 76 Gender: F : 1945 Exam Date: 07/23/2022 07:30 Ordering Phys: Milton Irizarry M.D ([email or web address]) Technologist: Tyler Rodriguez [place] [facility] [place]: SOB BP: 126 / 82 HR: 78 Rhythm: Sinus Technical Quality: Adequate MEASUREMENTS (Male / Female) Normal Values 2D ECHO LV Diastolic Diameter PLAX 4.8 cm 4.2 - 5.9 / 3.9 - 5.3 cm LV Systolic Diameter PLAX 3.2 cm IVS Diastolic Thickness 0.9 cm 0.6 - 1.0 / 0.6 - 0.9 cm IVS Systolic Thickness 1.1 cm LVPW Diastolic Thickness 1.1 cm 0.6 - 1.0 / 0.6 - 0.9 cm LVPW Systolic Thickness 1.6 cm LVOT Diameter 2.0 cm LV Ejection Fraction 2D Teich 60.8 % LV Ejection Fraction MOD 2C 58.1 % LV Ejection Fraction 2C AL 57.9 % LA Diameter 3.7 cm LA Width 3.8 cm LA Height 4.8 cm RA Width 3.7 cm RA Height 4.5 cm Aorta at Sinotubular Diameter 2.3 cm IVC Diameter 1.6 cm M-MODE Aortic Annulus Diameter 2.4 cm LA Ao Ratio MM 1.6 MV E Point Septal Separation 0.7 cm DOPPLER AV Peak Velocity 137.7 cm/s LVOT Peak Velocity 81.0 cm/s AV Area Cont Eq vti 2.4 cm squared AV Area Cont Eq pk 1.9 cm squared MV Peak Velocity 111.0 cm/s MV Area PHT 6.5 cm squared Mitral E to A Ratio 0.6 MV E' Velocity 21.6 cm/s Mitral E to MV E' Ratio 6.8 Mitral E to LV E' Lateral Ratio 6.7 Mitral E to LV E' Septal Ratio 7.0 TR Peak Velocity 257.3 cm/s TR Peak Gradient 26.5 mmHg TR Mean Velocity 198.0 cm/s TR Mean Gradient 16.6 mmHg TR Velocity Time Integral 68.2 cm Right Atrial Pressure 3.0 mmHg Pulmonary Artery Systolic Pressu 29.5 mmHg PV Peak Velocity 157.3 cm/s RV Acceleration Time 0.1 s RV Ejection Time 0.3 s RV AcT/ET 0.4 FINDINGS Left Ventricle Ventricle is normal in size. LV systolic function is normal with EF 55 to 60%. No regional wall motion abnormalities are seen. Grade 1 diastolic dysfunction Right Ventricle Normal in size and function Right Atrium Normal in size Left Atrium Normal in size Mitral Valve Structurally normal mitral valve. Mild mitral regurgitation Aortic Valve Structurally normal aortic valve. No significant stenosis. Trace aortic regurgitation. Tricuspid Valve Mild tricuspid regurgitation. Pulmonary artery systolic pressure is normal Pulmonic Valve Not well visualized Pericardium Normal Aorta Normal in size IVC Appears to be normal CONCLUSIONS LV systolic function is normal with EF of 55 to 60% Grade 1 diastolic dysfunction Mild mitral regurgitation Trace aortic regurgitation Mild tricuspid regurgitation Compared to prior echocardiogram from 2019, no significant changes are seen. Milton Irizarry MD (Electronically Signed) Final Date: 24 July 2022 23:51 S
== END 2022-07-23 07:11 | disposition home or self-care (01) ==
PROVIDERS: PCP Nurse Practitioner Family; Visit Provider Internal Medicine
DX: R06.02 Shortness of breath (principal); I08.3 Combined rheumatic disorders of mitral, aortic and tricuspid valves
CPT/HCPCS: 93306

== ENCOUNTER 2022-07-29 13:19 | Outpatient (CLI) | payer MEDICARE, BC, SELFPAY ==
--- NOTE | 2022-07-29 13:30 | CT_ITS ---
WS: [id number] CT ABDOMEN AND PELVIS NONCONTRAST HISTORY: ABDOMINAL PAIN, evaluate shunt. TECHNIQUE: Imaging performed through the abdomen and pelvis. Coronal and sagittal reformats are submi tted. All CT scans at [facility] use at least one of these dose optimization techniques: auto mated exposure control; mA and/or kV adjustment per patient size (includes targeted exams where dose is matched to clinical indication); or iterative reconstruction. DLP: 1008.36 mGy.cm COMPARISON: 03/21/2018 Lower thorax: Benign calcified granuloma RIGHT lower lung. Heart is normal size. Small hiatal hernia. Liver: Normal size liver. No mass or bile duct dilatation. Gallbladder: Normally distended with a small amount of sludge or stones in dependent gallbladder. No bile duct dilatation. Pancreas: Mild fatty replacement. Spleen: Normal. Adrenal glands: Normal. No mass. Right kidney: Normal size kidney. Mild lobulated cortex with no obstruction. Left kidney: Normal size kidney. Mildly lobulated cortex with no obstruction. Aorta: Mild atherosclerosis. Aorta is ectatic. There is a small focal dissection or calcified mural t hrombus in the infrarenal aorta. No change since the prior study. IVC and iliac vein stents. No free fluid, intraperitoneal air or significant lymphadenopathy. GI tract: Prior gastric bypass. No GI tract obstruction. The appendix is been removed. Numerous diver ticula in the distal colon with no evidence for acute diverticulitis. Abdominal wall: Small umbilical hernia contains fat only. HOOP RIVETER shunt catheter enters through the RIGHT into the peritoneal cavity. Tip is coiled in the pelvis. No adjacent fluid collections. Pelvis: Nondistended urinary bladder. Uterus is midline. No pelvic mass or fluid. Osseous structures: Advanced degenerative disc disease and degenerative scoliosis throughout the lumb ar spine. Bilateral hip prostheses. CT/CT abdomen pelvis wo con [id number] IMPRESSION: 1. No fluid collections within the abdomen or pelvis associated with the HOOP RIVETER sh unt catheter. 2. Cholelithiasis without acute cholecystitis. 3. IVC and iliac vein stents. 4. Prior gastric bypass. 5. Prior appendectomy.
--- NOTE | 2022-07-29 13:30 | CT_ITS ---
WS: [id number] CT HEAD TECHNIQUE: Noncontrast CT of the head obtained from the skullbase to the vertex. CLINICAL INFORMATION: NORMAL PRESSURE HYDROCEPHALUS COMPARISON: CT October 28, 2021 DLP: 917.[address] scans at [facility] use at least one of these dose optimization techniques: automated e xposure control; mA and/or kV adjustment per patient size (includes targeted exams where dose is matc hed to clinical indication); or iterative reconstruction. FINDINGS: No evidence of intracranial hemorrhage or mass effect. Ventricular system and basal cisterns are pelaez nt. Mild small vessel changes with moderate parenchymal volume loss. RIGHT parietal shunt catheter with tip in the RIGHT frontal horn unchanged from previous. Ventricular size is unchanged. No evidence of progressive hydrocephalus. No evidence of transependymal edema. Mild small vessel changes. Moderate parenchymal volume loss.Vascular calcification.Mild mucosal thick ening ethmoid air cells. Mastoid air cells are well aerated. Normal posterior nasopharynx. CT/CT head wo con* [id number] IMPRESSION: No significant interval changes since October 28, 2021 1. No evidence of intracranial hemorrhage or mass effect. 2. RIGHT parietal shunt catheter with tip in the RIGHT frontal horn unchanged from previous. 3. Ventricular size is unchanged. No evidence of progressive hydrocephalus. 4. Mild small vessel changes. Moderate parenchymal volume loss.
== END 2022-07-29 13:20 | disposition home or self-care (01) ==
LOC: RAD 13:20
PROVIDERS: PCP Nurse Practitioner Family; Visit Provider Surgery
DX: R10.9 Unspecified abdominal pain (principal); G91.2 (Idiopathic) normal pressure hydrocephalus; Z98.2 Presence of cerebrospinal fluid drainage device; K80.20 Calculus of gallbladder without cholecystitis without obstruction; Z98.84 Bariatric surgery status; Q42.8 Congenital absence, atresia and stenosis of other parts of large intestine
CPT/HCPCS: 70450; 74176

== ENCOUNTER → 2022-08-06 13:42 | Outpatient (BNVA) | payer MEDICARE, BC, SELFPAY | PROVIDERS: PCP Nurse Practitioner Family; Referring Provider Nurse Practitioner Family; Visit Provider Physician Assistant | DX: M51.36 Other intervertebral disc degeneration, lumbar region (principal); M47.816 Spondylosis without myelopathy or radiculopathy, lumbar region; M48.061 Spinal stenosis, lumbar region without neurogenic claudication | CPT/HCPCS: 99203 ==

== ENCOUNTER → 2022-08-24 15:02 | Outpatient (BNVA) | payer MEDICARE, BC, SELFPAY | PROVIDERS: PCP Nurse Practitioner Family; Visit Provider Internal Medicine | DX: I48.0 Paroxysmal atrial fibrillation (principal); Z79.01 Long term (current) use of anticoagulants; I27.82 Chronic pulmonary embolism; I25.10 Atherosclerotic heart disease of native coronary artery without angina pectoris; G91.2 (Idiopathic) normal pressure hydrocephalus; G31.84 Mild cognitive impairment of uncertain or unknown etiology; I10 Essential (primary) hypertension | CPT/HCPCS: 99214 ==

== ENCOUNTER 2022-08-26 10:40 | Emergency (ER) | payer MEDICARE, BC, SELFPAY ==
[2022-08-26 10:54] VITALS: BP 136/84; PULSE 84; RESP 17; TEMP 36.6; O2SAT 96; BMI 35.7
--- NOTE | 2022-08-26 11:27 | CT_ITS ---
WS: [id number] CT ABDOMEN PELVIS TECHNIQUE: Contrast-enhanced CT of the abdomen and pelvis with coronal and sagittal reformatted image s. CLINICAL INFORMATION: obstipation and pain COMPARISON: None. DLP: 943.[address] scans at [facility] use at least one of these dose optimization techniques: automated e xposure control; mA and/or kV adjustment per patient size (includes targeted exams where dose is matc hed to clinical indication); or iterative reconstruction. FINDINGS: Prior postoperative changes gastric banding. Prior appendectomy. PEDIATRICIAN ACTIVE PRACTICE shunt catheter is unchanged in ap pearance. Cholelithiasis. No gallbladder wall thickening or pericholecystic fluid. IVC and iliac vein stents ar e unchanged. Small esophageal hiatal hernia. PEDIATRICIAN ACTIVE PRACTICE shunt catheter is coiled in the pelvis with tip in the RIGHT lower quadrant. No obstructing fluid collections. Prior postoperative changes bilateral THAs degrade images in the pelvis. Sigmoid constipation. Mild fecal retention in the transverse colon. Normal hepatic enhancement. Chrissy l portal vein and splenic vein. Fatty atrophy of the pancreas. Normal spleen. Gastric bypass. Normal caliber abdominal aorta. Celiac and SMA are patent. Aortic atheromatous disease is unchanged in appea stefania. Slightly aneurysmal infrarenal abdominal aorta measuring 2.2 cm in maximum AP dimension is unc hanged. Eccentric atheromatous plaque is unchanged in appearance. Adrenal glands are normal. No hydronephrosis in either kidney. Normal renal parenchymal enhancement. Small LEFT renal cyst. CT/CT abdomen pelvis w con* [id number] IMPRESSION: 1. Prior gastric banding. Small esophageal hiatal hernia unchanged. 2. Cholelithiasis. No gallbladder wall thickening or cholecystic fluid. 3. PEDIATRICIAN ACTIVE PRACTICE shunt catheter coiled in the pelvis with tip in the RIGHT lower quadrant . No obstructing collections. 4. Stable IVC and iliac stents. 5. Bilateral THAs degrade images in the pelvis. 6. Mild sigmoid constipation. 7. Slightly aneurysmal infrarenal abdominal aorta with eccentric atheromatous plaque unchanged measuring 2.2 cm in maximum dimension. 8. No other acute findings or changes from previous
--- NOTE | 2022-08-26 11:28 | W.ED.GENADLT ---
HPI - General Adult General: Chief complaint: General Medical Stated complaint: constipation Time Seen by Provider: 08/26/22 11:14 Source: patient and family Mode of arrival: ambulatory Limitations: no limitations History of Present Illness: This patient made her way to the emergency department this morning by private vehicle accompanied by her spouse. She is here because she has had no bowel movements for over 2 weeks with associated abdominal fullness decreased appetite and some gagging on mucus at times. She does relate that she is always had a infrequent nature to her bowel movements having the usual bowel movement every 3 to 4 days. She states this has been her usual pattern for some time but this is very unusual. She does not take any long acting opiates etc. She denies any recent travel or change in her diet other than just decreasing oral intake over the past week or so. She denies any known exposure to infectious disease. She has had a prior appendectomy and a lap banding which was done over 20 years ago but it was released to its unbandaged state subsequently. But no other abdominal surgeries. She denies any known history of inflammatory or irritable bowel syndrome. She does admit that she does not drink much in the way of free water she primarily drinks soft drinks. She does have diabetes that she uses Trulicity as well as oral hypoglycemic agents to treat. She also has coronary artery disease and has had 2 hip replacements. She denies any recent fevers chills or other illness. She has not had emesis with this sent current symptoms. No history of other significant bowel issues other than noted above. She states she did have a screening colonoscopy approximately 10 years ago had a polyp removed but no other pathology was shared with her at that time. Associated symptoms: Reports nausea; Deny chest pain, dyspnea, headache(s), rash, palpitations, syncope or vomiting Review of Systems Const: Denies: fever(s) or chills ENMT: Denies: odynophagia Card: Denies: chest pain, palpitations, syncope or pre-syncope Resp: Denies: dyspnea, productive cough or non-productive cough GI: Reports: nausea, early satiety, constipation and bloating; Denies: vomiting : Reports: dribbling; Denies: flank pain, difficulty voiding, dysuria, urinary frequency or vaginal bleeding Musc: Denies: neck pain, back pain or extremity pain Skin/Breast: Denies: rash Neuro: Denies: headache(s), numbness in extremities or weakness in extremities Piyush/Lymph: Reports: easy bruising; Denies: easy bleeding PFSH ED PFSH: Medical History ASHD (arteriosclerotic heart disease) Asymptomatic coronary heart disease Atherosclerosis of arteries Atrial fibrillation Bilateral carotid artery stenosis entered in error Chest pain Coronary artery disease Depression Hydrocephalus Hyperlipidemia Hypertension Stable Lumbar disc disease with radiculopathy Obesity Pulmonary embolism SLAC (scapholunate advanced collapse) of wrist Surgical History History of adjustable gastric banding History of heart artery stent History of hip replacement, total Left, Right Hx of appendectomy Family History Other Adopted Social History Smoking and tobacco status: never smoked Alcohol intake: never Physical Exam Narrative: EXAM NARRATIVE: The patient is alert, appears comfortable, answers questions appropriately. Const: COMMON NORMALS: no acute distress, patient oriented x3 and alert GENERAL APPEARANCE: cooperative and comfortable NUTRITIONAL APPEARANCE: overweight HENMT: COMMON NORMALS: normocephalic, Normal nasal mucous membranes and turbinates present, moist oral mucous membranes and oropharynx normal HEAD & SCALP: normocephalic NOSE: Normal nasal mucous membranes and turbinates present Eye: COMMON NORMALS: Equal, round and reactive pupils present, conjunctivae normal and no scleral icterus CONJUNCTIVA: Yes conjunctivae normal PUPIL: Yes Equal, round and reactive pupils present Neck/C-Spine: COMMON NORMALS: full ROM, supple and no JVD Chest: COMMONS NORMALS: normal inspection of the chest Resp: COMMON NORMALS: normal respiratory effort, No use of accessory muscles and clear to auscultation bilaterally AUSCULTATION: clear to auscultation bilaterally Cardio: COMMON NORMALS: no JVD, regular rate, regular rhythm, No murmurs present (Cardio) and Peripheral pulses 2+ throughout RATE: regular rate RHYTHM: regular rhythm PERIPHERAL PULSES: Peripheral pulses 2+ throughout GI: RECTAL EXAM: normal sphincter tone (Normal sphincter tone, stool noted at the very tip of the examining finger,) OTHER: Abdominal examination reveals slightly obese abdomen with some mild generalized fullness noted. She has tenderness to palpation predominantly on the left abdomen and states it makes her entire abdomen uncomfortable. She does not have any focal tenderness otherwise, no rebound, no guarding. No masses to palpation. : COMMON NORMALS: Yes no CVA tenderness BLADDER/KIDNEY EXAM: Yes no CVA tenderness Back/Pelvis: COMMON NORMALS: no CVA tenderness, thoracic and lumbar spine normal to inspection and no thoracic nor lumbar tenderness Extremity: COMMON NORMALS: normal to inspection, capillary refill normal, no calf tenderness and no pedal edema Neuro: COMMON NORMALS: patient oriented x3, moves all extremities, no focal motor deficits and no sensory deficits noted SENSORIUM/ORIENTATION: Yes alert Psych: COMMON NORMALS: mental status grossly normal Skin: COMMON NORMALS: no rashes or lesions noted and turgor normal GENERAL SKIN EXAM: no rashes or lesions noted and turgor normal Course Reevaluation(s): Reevaluation #1: Patient remained stable without any new or focal findings on reevaluation. I discussed current findings with patient and spouse. Reassuring and that her CT scan does not show any significant pathology. Does have mild constipation but certainly no evidence of obstruction etc. No anemia to suggest other underlying issues such as occult tumor etc. in conjunction with the CT scan. Plan will be to discharge on a MiraLAX regimen with increased fluid intake and follow her response appropriate. Both she and spouse voiced understanding. Stable at this time for outpatient management. Time: 13:25 Vital Signs: Vital signs: Vital Signs Temperature 97.8 F 08/26/22 10:54 Pulse Rate 77 08/26/22 13:21 Respiratory Rate 17 08/26/22 10:54 Blood Pressure 136/84 08/26/22 10:54 Pulse Oximetry 99 08/26/22 13:21 Oxygen Delivery Me thod 08/26/22 13:21 [facility] - General Adult Medical Decision Making This patient presented with increasing constipation over the last 2 weeks. Known history of diabetes. Also longstanding lifelong history of irregular bowel movements. Patient freely admitted of poor water intake as well. Clinical examination revealed a nonsurgical abdomen. Rectal examination revealed good tone no evidence of fecal impaction. Ancillary studies were ordered to ensure no evidence of obstruction, obvious mass etc. Results were reassuring on all fronts. Likely this is as result of couple of factors: Possible autonomic dysfunction due to her longstanding diabetes, chronic abnormal bowel pattern, poor water intake. Plan will be to discharge on a regimen of MiraLAX, increasing fluid intake and follow response. Return precautions were discussed in detail. No evidence of an ongoing emergency medical condition at this time. Medical Records I reviewed the patient's medical records. Lab Data I reviewed the patient's lab results. 08/26/22 11:40 08/26/22 11:40 Radiology Impressions Abdomen/Pelvis CT 08/26/22 11:27 IMPRESSION: 1. Prior gastric banding. Small esophageal hiatal hernia unchanged. 2. Cholelithiasis. No gallbladder wall thickening or cholecystic fluid. 3. DINING ROOM ATTENDANT shunt catheter coiled in the pelvis with tip in the RIGHT lower quadrant. No obstructing collections. 4. Stable IVC and iliac stents. 5. Bilateral THAs degrade images in the pelvis. 6. Mild sigmoid constipation. 7. Slightly aneurysmal infrarenal abdominal aorta with eccentric atheromatous plaque unchanged measuring 2.2 cm in maximum dimension. 8. No other acute findings or changes from previous Laboratory Results WBC 7.0 10^3/uL (4.0-10.0) 08/26/22 11:40 RBC 4.88 10^6/uL (4.1-5.3) 08/26/22 11:40 Hgb 14.7 g/dL (11.5-15.3) 08/26/22 11:40 Hct 44.1 % (37.0-47.0) 08/26/22 11:40 MCV 90.4 fl (81-99) 08/26/22 11:40 MCH 30.1 pg (28.0-34.0) 08/26/22 11:40 MCHC 33.3 g/dL (30.0-36.0) 08/26/22 11:40 RDW 11.8 % (12.1-15.1) L 08/26/22 11:40 Plt Count 211 10^3/cmm (130-400) 08/26/22 11:40 MPV 9.4 fL (7.4-10.4) 08/26/22 11:40 Neut % (Auto) 53.3 % 08/26/22 11:40 Lymph % (Auto) 23.2 % 08/26/22 11:40 Tyler % (Auto) 4.3 % 08/26/22 11:40 Eos % (Auto) 18.5 % 08/26/22 11:40 Baso % (Auto) 0.4 % 08/26/22 11:40 Neut # (Auto) 3.73 10^3/uL (1.8-7.7) 08/26/22 11:40 Lymph # (Auto) 1.6 10^3/uL (0.8-4.8) 08/26/22 11:40 Tyler # (Auto) 0.3 10^3/uL (0.2-0.9) 08/26/22 11:40 Eos # (Auto) 1.3 10^3/uL (0.0-0.8) H 08/26/22 11:40 Baso # (Auto) 0.0 10^3/uL (0.0-0.1) 08/26/22 11:40 Nucleated RBC % (auto) 0 % 08/26/22 11:40 Nucleated RBCs # 0.0 /100WBC 08/26/22 11:40 Sodium 143 mmol/L (136-145) 08/26/22 11:40 Potassium 3.8 mmol/L (3.5-5.1) 08/26/22 11:40 Chloride 106 mmol/L (98-107) 08/26/22 11:40 Carbon Dioxide 27 mmol/L (22-29) 08/26/22 11:40 Anion Gap 13.8 (5-19) 08/26/22 11:40 BUN 12 mg/dL (8-23) 08/26/22 11:40 Creatinine 0.8 mg/dL (0.5-0.9) 08/26/22 11:40 GFR Calculation Not Reportable 08/26/22 11:40 Glucose 134 mg/dL (65-115) H 08/26/22 11:40 Calculated Osmolality 298 mOsm/kg (285-295) H 08/26/22 11:40 Calcium 8.9 mg/dL (8.5-10.5) 08/26/22 11:40 Total Bilirubin 0.8 mg/dL (0.15-1.2) 08/26/22 11:40 AST 10 U/L (0-32) 08/26/22 11:40 ALT 10 U/L (0-33) 08/26/22 11:40 Alkaline Phosphatase 89 U/L (35-105) 08/26/22 11:40 Total Protein 6.6 g/dL (6.6-8.7) 08/26/22 11:40 Albumin 3.8 g/dL (3.5-5.2) 08/26/22 11:40 Globulin 2.8 g/dL (1.3-4.6) 08/26/22 11:40 Urine Color Colorless (Yellow) 08/26/22 12:50 Urine Appearance Clear (CLEAR) 08/26/22 12:50 Urine pH 7 (5-7) 08/26/22 12:50 Ur Specific [place] 1.010 (1.005-1.030) 08/26/22 12:50 Urine Protein Neg (Negative) 08/26/22 12:50 Urine Glucose (UA) Norm (Normal) 08/26/22 12:50 Urine Ketones Negative (Negative) 08/26/22 12:50 Urine Blood Neg (Negative) 08/26/22 12:50 Urine Nitrate Negative (Negative) 08/26/22 12:50 Urine Bilirubin Neg (Negative) 08/26/22 12:50 Urine Urobilinogen Norm mg/dL (Negative) 08/26/22 12:50 Ur Leukocyte Esterase Negative (Negative) 08/26/22 12:50 Discharge Plan Discharge Patient Disposition: Home Clinical Impression: Constipation in female, Autonomic dysfunction with type 2 diabetes mellitus Condition: Stable Prescriptions: New Miralax 17 gram/dose powder 4 g PO DAILY Qty: 119 3RF Discontinued bisacodyl [Dulcolax (bisacodyl)] 5 mg Tablet,Delayed Release (Dr/Ec) 10 mg PO TID PRN (Reason: Constipation) No Action (DME) Diabetic Sandal with 3 inserts See Rx Instructions .Route .MEDSUPPLY Qty: 1 0RF Rx Instructions: As directed atorvastatin 40 mg tablet 40 mg PO DAILY@10 Viibryd 20 mg tablet 20 mg PO DAILY@10 Trulicity 0.75 mg/0.5 mL pen injector 0.75 mg SUBCUT Q7D Rx Instructions: on sat irbesartan 300 mg tablet 300 mg PO DAILY@10 Januvia 100 mg tablet 100 mg PO DAILY@10 venlafaxine 37.5 mg capsule,extended release 24hr 75 mg PO DAILY@10 prednisolone acetate 1 % drops,suspension 1 drp ophthalmic (eye) QID Rx Instructions: left eye oxybutynin chloride 5 mg tablet extended release 24hr 5 mg PO BEDTIME Flonase 50 mcg/actuation [place],Suspension 2 spray INTRANASAL BID metformin 500 mg tablet extended release 24 hr 1,000 mg PO DAILY@10 valsartan 160 mg Tablet Vitamin D3 25 mcg (1,000 unit) Tablet 25 mcg PO DAILY@10 clopidogrel 75 mg tablet 75 mg PO DAILY@10 Xarelto 20 mg tablet 20 mg PO DAILY@10 Discharge Orders: Discharge ED (Routine); Ordered 08/26/22 Ordered By: Mark Escobar Referrals: Mitra Srivastava FNP [Primary Care Provider] - Discharge Diet: Usual diet Discharge Activity: Increase activity as tolerated Patient Instructions: Opioid Safety, Pain Management Activity Restrictions/Additional Instructions: As we discussed your emergency department evaluation did not reveal any serious conditions 2-day. We have recommended that you start on a MiraLAX regimen, initially using 2 doses of MiraLAX 1 in the morning and 1 in the afternoon. As your bowel movements improve you may decrease that to 1 dose of MiraLAX in the mornings. We also recommend that you increase your water intake to at least 1 quart of water and perhaps 2 on a daily basis. We anticipate this will help your bowel movement issue some. If you do not become improved, have worsening symptoms, develop abdominal pain, fever or any other concerns return to this or the nearest emergency department. We also recommend that you follow-up with your regular doctor in the next 2 to 3 weeks for reevaluation if needed. Coding Level of Care Code ED [employer]ling [employer]ley [employer]ic for Edvin Baldwin
[2022-08-26 11:47] LABS: Basophils % 0.4 %; Eosinophils # 1.3 10^3/uL (0.0-0.8); Eosinophils % 18.5 %; Hematocrit 44.1 % (37.0-47.0); Hemoglobin 14.7 g/dL (11.5-15.3); Lymphocytes # 1.6 10^3/uL (0.8-4.8); Lymphocytes % 23.2 %; Mean Corpuscular HGB Conc 33.3 g/dL (30.0-36.0); Mean Corpuscular Hemoglobin 30.1 pg (28.0-34.0); Mean Corpuscular Volume 90.4 fl (81-99); Mean Platelet Volume 9.4 fL (7.4-10.4); Monocytes # 0.3 10^3/uL (0.2-0.9); Monocytes % 4.3 %; Neutrophils # 3.73 10^3/uL (1.8-7.7); Neutrophils % 53.3 %; Nucleated Red Blood Cells % 0 %; Platelet Count 211 10^3/cmm (130-400); Red Blood Count 4.88 10^6/uL (4.1-5.3); Red Cell Distribution Width 11.8 % (12.1-15.1)
[2022-08-26] MEDS: sodium chloride 0.9% 500 ML IV (11:48)
[2022-08-26 12:05] LABS: Alanine Aminotransferase 10 U/L (0-33); Albumin Level 3.8 g/dL (3.5-5.2); Alkaline Phosphatase 89 U/L (35-105); Anion Gap 13.8 (5-19); Aspartate Amino Transferase 10 U/L (0-32); Blood Urea Nitrogen 12 mg/dL (8-23); Calcium 8.9 mg/dL (8.5-10.5); Carbon Dioxide 27 mmol/L (22-29); Chloride 106 mmol/L (98-107); Globulin 2.8 g/dL (1.3-4.6); Glucose 134 mg/dL (65-115); Osmolality Calculated 298 mOsm/kg (285-295); Potassium 3.8 mmol/L (3.5-5.1); Sodium 143 mmol/L (136-145); Total Bilirubin 0.8 mg/dL (0.15-1.2); Total Protein 6.6 g/dL (6.6-8.7)
[2022-08-26] MEDS: iohexol 350 mg/mL 500 mL Btl (per mL) IV (12:40)
[2022-08-26 12:58] LABS: Add Urine Microscopic? NO; Charge for UA Resulting for Rev
[2022-08-26 13:07] LABS: Bilirubin Urine Neg (Negative); Blood Urine Neg (Negative); Glucose Urine UA Norm (Normal); Ketones Urine Negative (Negative); Leukocyte Esterase Urine Negative (Negative); Nitrate Urine Negative (Negative); Protein Urine Neg (Negative); Urine Appearance Clear (CLEAR); Urine Color Colorless (Yellow); Urobilinogen Urine Norm (Negative); pH Urine 7 (5-7)
[2022-08-26 13:21] VITALS: PULSE 77; O2SAT 99
[2022-08-26 13:46] VITALS: BP 132/70; PULSE 79; RESP 16; O2SAT 99
== END 2022-08-26 13:46 | disposition home or self-care (01) ==
PROVIDERS: Emergency Provider Emergency Medicine; PCP Nurse Practitioner Family
DX: K59.00 Constipation, unspecified (principal); K80.20 Calculus of gallbladder without cholecystitis without obstruction; Z79.84 Long term (current) use of oral hypoglycemic drugs; Z79.85 Long-term (current) use of injectable non-insulin antidiabetic drugs; I25.10 Atherosclerotic heart disease of native coronary artery without angina pectoris; E78.5 Hyperlipidemia, unspecified; I10 Essential (primary) hypertension; E11.69 Type 2 diabetes mellitus with other specified complication
CPT/HCPCS: 74177; 80053; 81003; 85025; 96360; 99285; J7040; Q9967

== ENCOUNTER 2022-09-11 16:26 | Emergency (ER) | payer MEDICARE, BC, SELFPAY ==
[2022-09-11 16:34] VITALS: BP 172/89; PULSE 87; RESP 16; TEMP 36.2; O2SAT 98; BMI 35.6
--- NOTE | 2022-09-11 16:51 | XRR_ITS ---
PROCEDURE INFORMATION: Exam: XR Abdomen Exam date and time: 09/11/2022 5:27 PM Age: 76 years old Clinical indication: Abdominal pain; Prior surgery; Surgery type: Gastric sleeve; Additional info: Upper abd pain, burning TECHNIQUE: Imaging protocol: Radiologic exam of the abdomen. Views: Frontal supine view of the abdomen. 1 View. COMPARISON: CT abdomen pelvis w con* [id number] 08/26/2022 12:26 PM FINDINGS: Gastrointestinal tract: Postsurgical change of gastric banding or gastric sleeve. Inferior vena cava and iliac vein stent grafts noted. GENERATOR MECHANIC shunt catheter is seen, appearing coiled within the pelvis. Bilateral hip prostheses noted. Suggestion of small neurostimulator apparatus in the upper right pelvis with lead at the mid right sacral level of the pelvis. A mixed bowel gas pattern is seen with gas and gastric contents in a mildly distended stomach, gas and stool in the colon, and several small bowel loops within the abdomen that appear upper limits of normal in caliber. Findings likely reflect ileus appearance with mixed bowel gas pattern. Follow-up can be performed to ensure no interval worsening or development obstruction. Intraperitoneal space: No indication of free air. Bones/joints: See Gastrointestinal tract finding. XR/XR abdomen 1V* [id number] IMPRESSION: 1. Mixed bowel gas pattern most suggestive of ileus for follow-up. 2. Previous gastric banding or gastric sleeve, GENERATOR MECHANIC shunt catheter, inferior vena cava/iliac vein stent grafts and bilateral hip prostheses.
--- NOTE | 2022-09-11 16:52 | ED_ITS ---
HPI - Abdominal Pain General: Chief Complaint: Abdominal Pain Stated Complaint: abd pain Time Seen by Provider: 09/11/22 16:30 History of Present Illness: Patient presents to the ER with complaints of upper abdominal pain going on for about the last 2 weeks. Patient was seen in the ER 2 weeks ago and given a medicine to help with her bowels. Patient says she has been taking this every day and now her bowels are going way too much. Patient reports an upper abdominal discomfort along with being very bloated and very gaseous. Patient states when she does pass gas it does help. Patient also states she has upper abdominal burning. Patient seen her PCP on Wednesday who thought it may be a complication of the Trulicity so they stopped the Trulicity and put the patient on Prilosec since then. Patient has taken 2 doses of the Prilosec and says this does not help. MD elicited complaint: abdominal pain Onset (ago): week(s) (2 weeks ago) Pain Consistency: colicky Location: LUQ and RUQ Severity: moderate Radiation: none Migration to: no migration Exacerbating factors: nothing Relieving factors: other (Passing gas) Associated Symptoms: Reports diarrhea; Denies chills, dysuria, fever(s), nausea and vomiting Review of Systems General: Reports: 10 or more systems reviewed and unremarkable except in HPI and below Const: Denies: fever(s) or chills Eyes: Denies: change in vision ENMT: Denies: throat pain or odynophagia Card: Denies: chest pain, palpitations, irregular heart rhythm or edema Resp: Denies: dyspnea, productive cough or non-productive cough GI: Reports: abdominal pain and diarrhea; Denies: nausea or vomiting : Denies: flank pain, difficulty voiding or dysuria Musc: Denies: neck pain or back pain Skin/Breast: Denies: rash or pruritus Neuro: Denies: headache(s), numbness in extremities or weakness in extremities Psych: Denies: anxiety or depression Endo: Denies: polyuria, polydipsia or tired all the time Piyush/Lymph: Denies: easy bruising or easy bleeding All/Imm: Denies: urticaria or throat swelling PFSH ED PFSH: Medical History ASHD (arteriosclerotic heart disease) Asymptomatic coronary heart disease Atherosclerosis of arteries Atrial fibrillation Bilateral carotid artery stenosis entered in error Chest pain Coronary artery disease Depression Hydrocephalus Hyperlipidemia Hypertension Stable Lumbar disc disease with radiculopathy Obesity Pulmonary embolism SLAC (scapholunate advanced collapse) of wrist Surgical History History of adjustable gastric banding History of heart artery stent History of hip replacement, total Left, Right Hx of appendectomy Family History Other Adopted Social History Smoking and tobacco status: never smoked Alcohol intake: never Physical Exam Const: COMMON NORMALS: no acute distress, average body habitus, patient oriented x3, no limitations, healthy appearing and well nourished HENMT: COMMON NORMALS: normocephalic, atraumatic, hearing grossly normal b ilaterally, external ears normal, Normal external nose present and moist oral mucous membranes HEAD & SCALP: normocephalic and atraumatic NOSE: Normal external nose present EXTERNAL EAR: Yes external ears normal Eye: COMMON NORMALS: Equal, round and reactive pupils present, EOMs intact bilaterally, conjunctivae normal and no scleral icterus CONJUNCTIVA: Yes conjunctivae normal PUPIL: Yes Equal, round and reactive pupils present Neck/C-Spine: COMMON NORMALS: full ROM, no lymphadenopathy, supple, no meningeal signs, no JVD and Thyroid normal THYROID: Thyroid normal Chest: COMMONS NORMALS: normal inspection of the chest and normal palpation of entire chest wall Resp: COMMON NORMALS: normal respiratory effort, No retractions, No use of accessory muscles and clear to auscultation bilaterally AUSCULTATION: clear to auscultation bilaterally Cardio: COMMON NORMALS: no JVD, regular rate, regular rhythm, S1 normal heart sound present and S2 normal heart sound present RATE: regular rate RHYTHM: regular rhythm HEART SOUNDS: S1 normal heart sound present and S2 normal heart sound present GI: COMMON NORMALS: Normal to inspection, nondistended, normoactive bowel sounds present, Soft to palpation, non-tender, No hepatosplenomegaly present and no masses PALPATION: Yes Soft to palpation and Yes No hepatosplenomegaly present : COMMON NORMALS: Yes no CVA tenderness BLADDER/KIDNEY EXAM: Yes no CVA tenderness Back/Pelvis: COMMON NORMALS: no CVA tenderness Neuro: COMMON NORMALS: patient oriented x3, CN's II-XII intact bilaterally, moves all extremities, no focal motor deficits and no sensory deficits noted MENINGEAL SIGNS: Yes no meningeal signs Psych: COMMON NORMALS: mental status grossly normal, Normal thought process present, cooperative, normal affect and speech normal SPEECH: Yes normal speech THOUGHT PROCESS: Normal thought process present Course Vital Signs: Vital signs: Vital Signs Temperature 97.1 F L 09/11/22 16:34 Pulse Rate 87 09/11/22 18:03 Respiratory Rate 16 09/11/22 18:03 Blood Pressure 131/95 09/11/22 18:03 Pulse Oximetry 100 09/11/22 18:03 Oxygen Delivery Me thod Room Air 09/11/22 18:03 MDM - Abdominal Pain Medical Decision Making Patient presents to the ER with complaints of 2 weeks of abdominal pain, patient has been taking Pepto-Bismol which has helped. Patient describes his account of upper epigastric area burning pain. Lab work was obtained included CBC CMP which was benign. Imaging was obtained which showed mixed bowel gas pattern most suggestive of ileus. Patient was given a GI cocktail and eventually allowed to drink water which she kept down. These findings were discussed with the patient and patient elected to go home. Patient notes that if she gets worse she may need to come back for observation and/or NG tube placement. P atient be discharged with Zofran and is to follow-up with her family practice doc within the next week. Differential Diagnosis Likely abdominal pain; Unlikely acute appendicitis, calculus of kidney, constipation, diverticulitis, endometriosis, gastroenteritis, pancreatitis or small bowel obstruction Lab Data 09/11/22 18:45 09/11/22 18:45 Labs/Radiology: Radiology Impressions Abdomen X-Ray 09/11/22 16:51 IMPRESSION: 1. Mixed bowel gas pattern most suggestive of ileus for follow-up. 2. Previous gastric banding or gastric sleeve, CHEMIST PHYSICAL shunt catheter, inferior vena cava/iliac vein stent grafts and bilateral hip prostheses. Laboratory Results WBC 8.2 10^3/uL (4.0-10.0) 09/11/22 18:45 RBC 4.88 10^6/uL (4.1-5.3) 09/11/22 18:45 Hgb 14.8 g/dL (11.5-15.3) 09/11/22 18:45 Hct 44.8 % (37.0-47.0) 09/11/22 18:45 MCV 91.8 fl (81-99) 09/11/22 18:45 MCH 30.3 pg (28.0-34.0) 09/11/22 18:45 MCHC 33.0 g/dL (30.0-36.0) 09/11/22 18:45 RDW 12.2 % (12.1-15.1) 09/11/22 18:45 Plt Count 236 10^3/cmm (130-400) 09/11/22 18:45 MPV 9.6 fL (7.4-10.4) 09/11/22 18:45 Neut % (Auto) 58.4 % 09/11/22 18:45 Lymph % (Auto) 21.8 % 09/11/22 18:45 Arthur % (Auto) 5.4 % 09/11/22 18:45 Eos % (Auto) 13.4 % 09/11/22 18:45 Baso % (Auto) 0.9 % 09/11/22 18:45 Neut # (Auto) 4.80 10^3/uL (1.8-7.7) 09/11/22 18:45 Lymph # (Auto) 1.8 10^3/uL (0.8-4.8) 09/11/22 18:45 Arthur # (Auto) 0.4 10^3/uL (0.2-0.9) 09/11/22 18:45 Eos # (Auto) 1.1 10^3/uL (0.0-0.8) H 09/11/22 18:45 Baso # (Auto) 0.1 10^3/uL (0.0-0.1) 09/11/22 18:45 Nucleated RBC % (auto) 0 % 09/11/22 18:45 Nucleated RBCs # 0.0 /100WBC 09/11/22 18:45 Sodium 139 mmol/L (136-145) 09/11/22 18:45 Potassium 3.8 mmol/L (3.5-5.1) 09/11/22 18:45 Chloride 102 mmol/L (98-107) 09/11/22 18:45 Carbon Dioxide 25 mmol/L (22-29) 09/11/22 18:45 Anion Gap 15.8 (5-19) 09/11/22 18:45 BUN 11 mg/dL (8-23) 09/11/22 18:45 Creatinine 0.6 mg/dL (0.5-0.9) 09/11/22 18:45 GFR Calculation Not Reportable 09/11/22 18:45 Glucose 130 mg/dL (65-115) H 09/11/22 18:45 Calculated Osmolality 289 mOsm/kg (285-295) 09/11/22 18:45 Calcium 8.9 mg/dL (8.5-10.5) 09/11/22 18:45 Total Bilirubin 0.9 mg/dL (0.15-1.2) 09/11/22 18:45 AST 10 U/L (0-32) 09/11/22 18:45 ALT 9 U/L (0-33) 09/11/22 18:45 Alkaline Phosphatase 92 U/L (35-105) 09/11/22 18:45 Total Protein 6.9 g/dL (6.6-8.7) 09/11/22 18:45 Albumin 4.1 g/dL (3.5-5.2) 09/11/22 18:45 Globulin 2.8 g/dL (1.3-4.6) 09/11/22 18:45 Lipase 15 U/L (13-60) 09/11/22 18:45 EKG Data EKG 1: I personally reviewed and interpreted this EKG as follows: EKG interpretation date: 09/11/22 EKG interpretation time: 16:58 Prior EKG tracings: not available for review Interpretation: EKG showed normal sinus rhythm with a ventricular rate of 84 bpm, MT interval 187, QRS duration 156, QTc of 460, Discharge Plan Discharge Patient Disposition: Home Clinical Impression: Abdominal pain, Dynamic ileus Condition: Stable Prescriptions: New ondansetron 4 mg tablet,disintegrating 4 mg PO Q8H PRN (Reason: nausea and vomiting) Qty: 14 0RF No Action (DME) Diabetic Sandal with 3 inserts See Rx Instructions .Route .MEDSUPPLY Qty: 1 0RF Rx Instructions: As directed atorvastatin 40 mg tablet 40 mg PO DAILY@10 Viibryd 20 mg tablet 20 mg PO DAILY@10 Trulicity 0.75 mg/0.5 mL pen injector 0.75 mg SUBCUT Q7D Rx Instructions: on sat irbesartan 300 mg tablet 300 mg PO DAILY@10 Januvia 100 mg tablet 100 mg PO DAILY@10 venlafaxine 37.5 mg capsule,extended release 24hr 75 mg PO DAILY@10 prednisolone acetate 1 % drops,suspension 1 drp ophthalmic (eye) QID Rx Instructions: left eye oxybutynin chloride 5 mg tablet extended release 24hr 5 mg PO BEDTIME Flonase 50 mcg/actuation [place],Suspension 2 spray INTRANASAL BID metformin 500 mg tablet extended release 24 hr 1,000 mg PO DAILY@10 valsartan 160 mg Tablet 160 mg PO DAILY Vitamin D3 25 mcg (1,000 unit) Tablet 25 mcg PO DAILY@10 clopidogrel 75 mg tablet 75 mg PO DAILY@10 Xarelto 20 mg tablet 20 mg PO DAILY@10 Miralax 17 gram/dose powder 4 g PO DAILY Qty: 119 3RF Discharge Orders: Discharge ED (Routine); Ordered 09/11/22 Ordered By: Thang De Jesus Referrals: Mitra Srivastava FNP [Primary Care Provider] - 1 week Patient Instructions: Abdominal Pain (ED), Ileus (ED) Coding Level of Care Code ED Information Technology Administrator for Edvin Baldwin
--- NOTE | 2022-09-11 16:56 | ECG_ITS ---
[facility] Test Date: 2022-09-11 Pat Name: Cherelle Sue Department: Room: Gender: Female Manager Resort: : 1945 Requested By: Thang De Jesus Order Number: [id number] Mono MD: Milton Irizarry M.D. Measurements Intervals [place] Rate: 84 P: 42 PA: 187 QRS: -73 QRSD: 156 T: 63 QT: 419 QTc: 497 Interpretive Statements SINUS RHYTHM RIGHT BUNDLE BRANCH BLOCK [120+ ms QRS DURATION, UPRIGHT V1, 40+ ms S IN I/aVL/V4/V5/V6] LEFT ANTERIOR FASCICULAR BLOCK [QRS AXIS <= -45, QR IN I, RS IN II] PROBABLE ANTEROSEPTAL MYOCARDIAL INFARCTION , OF INDETERMINATE AGE [35 ms Q WAVE IN V1-V4] Compared to ECG 06/14/2019 12:04:41 Right bundle-branch block now present Myocardial infarct finding still present Electronically Signed On 09-12-2022 10:30:31 CDT by Milton Irizarry M.D. [email or web address]
[2022-09-11] MEDS: lidocaine 2% viscous 15 ML, aluminum-mag hydrox-simethicon 30 ML, sucralfate oral liq 1 GM PO (17:57)
[2022-09-11 18:03] VITALS: BP 131/95; PULSE 87; RESP 16; O2SAT 100
[2022-09-11 18:53] LABS: Basophils # 0.1 10^3/uL (0.0-0.1); Basophils % 0.9 %; Eosinophils # 1.1 10^3/uL (0.0-0.8); Eosinophils % 13.4 %; Hematocrit 44.8 % (37.0-47.0); Hemoglobin 14.8 g/dL (11.5-15.3); Lymphocytes # 1.8 10^3/uL (0.8-4.8); Lymphocytes % 21.8 %; Mean Corpuscular Hemoglobin 30.3 pg (28.0-34.0); Mean Corpuscular Volume 91.8 fl (81-99); Mean Platelet Volume 9.6 fL (7.4-10.4); Monocytes # 0.4 10^3/uL (0.2-0.9); Monocytes % 5.4 %; Neutrophils % 58.4 %; Nucleated Red Blood Cells % 0 %; Platelet Count 236 10^3/cmm (130-400); Red Blood Count 4.88 10^6/uL (4.1-5.3); Red Cell Distribution Width 12.2 % (12.1-15.1); White Blood Count 8.2 10^3/uL (4.0-10.0)
[2022-09-11 19:10] LABS: Alanine Aminotransferase 9 U/L (0-33); Albumin Level 4.1 g/dL (3.5-5.2); Alkaline Phosphatase 92 U/L (35-105); Anion Gap 15.8 (5-19); Aspartate Amino Transferase 10 U/L (0-32); Blood Urea Nitrogen 11 mg/dL (8-23); Calcium 8.9 mg/dL (8.5-10.5); Carbon Dioxide 25 mmol/L (22-29); Chloride 102 mmol/L (98-107); Globulin 2.8 g/dL (1.3-4.6); Glucose 130 mg/dL (65-115); Lipase 15 U/L (13-60); Osmolality Calculated 289 mOsm/kg (285-295); Potassium 3.8 mmol/L (3.5-5.1); Sodium 139 mmol/L (136-145); Total Bilirubin 0.9 mg/dL (0.15-1.2); Total Protein 6.9 g/dL (6.6-8.7)
[2022-09-11 20:13] VITALS: BP 131/95; PULSE 87; RESP 16; TEMP 36.2; O2SAT 100
== END 2022-09-11 20:14 | disposition home or self-care (01) ==
PROVIDERS: Emergency Provider Emergency Medicine; PCP Nurse Practitioner Family
DX: R10.10 Upper abdominal pain, unspecified (principal); K56.7 Ileus, unspecified; Z79.02 Long term (current) use of antithrombotics/antiplatelets; Z79.85 Long-term (current) use of injectable non-insulin antidiabetic drugs; Z79.84 Long term (current) use of oral hypoglycemic drugs; I25.10 Atherosclerotic heart disease of native coronary artery without angina pectoris; E78.5 Hyperlipidemia, unspecified; I10 Essential (primary) hypertension
CPT/HCPCS: 36415; 74018; 80053; 83690; 85025; 93005; 99285

== ENCOUNTER 2022-09-28 12:25 | Outpatient (CLI) | payer MEDICARE, BC, SELFPAY ==
--- NOTE | 2022-09-28 13:19 | XR_ITS ---
WS: [id number] [id number] REASON FOR EXAM: R ARM PAIN FINDINGS: No fracture or focal bone lesion. Significant narrowing of the acromioclavicular joint with subchondral sclerosis and small osteophytos is. Significant narrowing of the glenohumeral joint with large osteophytes of the humeral head. 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 No acute bone or joint abnormality.
== END 2022-09-28 12:26 | disposition home or self-care (01) ==
LOC: RAD 12:30
PROVIDERS: PCP Nurse Practitioner Family; Visit Provider Nurse Practitioner Family
DX: M79.601 Pain in right arm (principal); M19.011 Primary osteoarthritis, right shoulder
CPT/HCPCS: 73060

== ENCOUNTER 2022-09-30 07:46 | Outpatient (CLI) | payer MEDICARE, BC, SELFPAY ==
--- NOTE | 2022-09-30 08:00 | US_ITS ---
WS: [id number] Gallbladder and right upper quadrant ultrasound, 09/30/2022 Clinical Data: ABDOMINAL PAIN Comparison: None. Findings: The gallbladder shows numerous small stones. The wall measures 0.2 cm with no pericholecystic fluid. The common bile duct is 0.3 cm and there are no intrahepatic ductal abnormalities. Liver shows no cysts, masses or dilated intrahepatic ducts. The pancreas is not obscured by overlying bowel gas and no cyst, pseudocyst, or evidence of pancreati tis is noted. Right kidney measures 9.8 cm and no cyst, masses or hydronephrosis can be seen. The aorta and inferior vena cava show no vascular abnormalities. US/US abdomen limited [id number] Impression: Numerous small gallstones.
== END 2022-09-30 07:47 | disposition home or self-care (01) ==
LOC: RAD 07:50
PROVIDERS: PCP Nurse Practitioner Family; Visit Provider Nurse Practitioner Family
DX: R10.9 Unspecified abdominal pain (principal)
CPT/HCPCS: 76705

== ENCOUNTER 2022-11-27 12:06 | Outpatient (CLI) | payer MEDICARE, BC, SELFPAY ==
--- NOTE | 2022-11-27 12:23 | XR_ITS ---
WS: [id number] RIGHT ELBOW: 3 VIEW(S) TECHNIQUE: AP, oblique and lateral. HISTORY: GANGLION CYST OF RIGHT ELBOW COMPARISON: None available. No acute fractures or dislocation. Small joint effusion. Small osteophytes at the radial head. There is a small cluster of calcification s projecting over the medial and posterior elbow joint. These may be calcified loose bodies within th e joint or the soft tissues. Cluster of calcifications measures 15 x 10 mm. XR/XR elbow RT min 3V* [id number] IMPRESSION: 1. Mild degenerative changes at the RIGHT elbow. 2. Cluster of calcifications along the posterior medial elbow joint. These may be soft tissue calcifications or intra-articular loose bodies. Cluster measure s 15 x 10 mm.
== END 2022-11-27 12:07 | disposition home or self-care (01) ==
PROVIDERS: PCP Nurse Practitioner Family; Visit Provider Nurse Practitioner Family
DX: M67.421 Ganglion, right elbow (principal); M25.821 Other specified joint disorders, right elbow; M25.421 Effusion, right elbow; M25.721 Osteophyte, right elbow
CPT/HCPCS: 73080

== ENCOUNTER → 2022-12-28 14:01 | Outpatient (BNVA) | payer MEDICARE, BC, SELFPAY | PROVIDERS: PCP Nurse Practitioner Family; Visit Provider Student in an Organized Health Care Education/Training Program | DX: R22.31 Localized swelling, mass and lump, right upper limb | CPT/HCPCS: 99213 ==

== ENCOUNTER 2023-02-15 15:19 | Outpatient (CLI) | payer MEDICARE, BC, SELFPAY ==
--- NOTE | 2023-02-15 16:00 | CT_ITS ---
WS: [id number] CT RIGHT ELBOW, WITH CONTRAST HISTORY: MASS RIGHT ELBOW Technique: All CT scans at [facility] use at least one of these dose optimization techniques: automated exposure control; mA and/or kV adjustment per patient size (includes targeted exams where dose is matched to clinical indication); or iterative reconstruction. DLP: 211.36 mGy.cm Contrast: Omnipaque 95 mL IV. COMPARISON: Radiograph 11/27/2022. No acute fracture or dislocation. Moderate narrowing of the elbow joint with osteophytes from the ole cranon and the radial head. No significant joint effusion is identified. Previously described calcifi cations are external to the joint and not surrounded by fluid. These calcifications appear to be in t he subcutaneous fat measuring 17 x 13 mm. These could be posttraumatic or inflammatory. These are jus t beneath the skin surface. No significant muscle atrophy or edema. There are additional very tiny loose bodies within the elbow joint closely associated with the olecra non. IMPRESSION: 1. Subcutaneous soft tissue calcifications measures 17 x 13 mm along the posterior elbow. These are n ot within the joint and there is no significant joint effusion. 2. Moderate degenerative changes of osteoarthritis at the elbow joint. No fractures or displacement. 3. Additional small calcified loose bodies in the elbow joint and closely associated with the olecran on.
[2023-02-15 16:07] LABS: Blood Urea Nitrogen 7 mg/dL (8-23)
[2023-02-15] MEDS: iohexol 350 mg/mL 500 mL Btl (per mL) IV (16:29)
== END 2023-02-15 15:20 | disposition home or self-care (01) ==
PROVIDERS: Specialist; PCP Nurse Practitioner Family; Visit Provider Student in an Organized Health Care Education/Training Program
DX: R22.31 Localized swelling, mass and lump, right upper limb (principal); M19.021 Primary osteoarthritis, right elbow; M24.021 Loose body in right elbow
CPT/HCPCS: 73201; 82565; 84520; Q9967

== ENCOUNTER 2023-03-01 13:33 | Outpatient (CLI) | payer MEDICARE, BC, SELFPAY ==
--- NOTE | 2023-03-01 13:41 | XR_ITS ---
WS: [email or web address] EXAMINATION: XR lumbar spine 2-3V* [id number] REASON FOR EXAM: LUMBAR RADICULOPATHY/DDD,LUMBAR COMPARISON: None available. ORDER DATE: 03/01/2023 1:47 PM FINDINGS: Generalized degenerative spinal changes are seen including moderate degenerative endplate changes and marginal osteophytes. There marked narrowing of several of the the intervertebral disc spaces. There is no evidence of acute compression deformities. There is grade 1 anterolisthesis of approximately 6 mm of L5 compared to S1. There is approximately 15 degree levoscoliosis in the upper lumbar region. Vascular stent superimposed the spine. There are bilateral total hip replacements. IMPRESSION: MODERATE DEGENERATIVE SPINE CHANGE AND SPONDYLOSIS.
== END 2023-03-01 13:34 | disposition home or self-care (01) ==
PROVIDERS: PCP Nurse Practitioner Family; Visit Provider Surgery
DX: M54.16 Radiculopathy, lumbar region (principal); M47.896 Other spondylosis, lumbar region
CPT/HCPCS: 72100

== ENCOUNTER → 2023-03-31 11:37 | Outpatient (BNVA) | payer MEDICARE, BC, SELFPAY | PROVIDERS: PCP Nurse Practitioner Family; Visit Provider Nurse Practitioner Family | DX: L82.0 Inflamed seborrheic keratosis (principal); B02.9 Zoster without complications; L57.8 Other skin changes due to chronic exposure to nonionizing radiation; L81.4 Other melanin hyperpigmentation | CPT/HCPCS: 17110; 99214 ==

== ENCOUNTER → 2023-04-07 08:42 | Outpatient (BNVA) | payer MEDICARE, BC, SELFPAY | PROVIDERS: PCP Nurse Practitioner Family; Visit Provider Nurse Practitioner Family | DX: L30.4 Erythema intertrigo (principal); B02.9 Zoster without complications; L57.8 Other skin changes due to chronic exposure to nonionizing radiation; L81.4 Other melanin hyperpigmentation; D22.5 Melanocytic nevi of trunk | CPT/HCPCS: 99214 ==

== ENCOUNTER → 2023-04-15 12:41 | Outpatient (BNVA) | payer MEDICARE, BC, SELFPAY | PROVIDERS: PCP Nurse Practitioner Family; Visit Provider Nurse Practitioner Family | DX: L30.4 Erythema intertrigo (principal); B02.9 Zoster without complications; L57.8 Other skin changes due to chronic exposure to nonionizing radiation; L81.4 Other melanin hyperpigmentation; D22.5 Melanocytic nevi of trunk | CPT/HCPCS: 99213 ==

== ENCOUNTER → 2023-05-17 10:53 | Outpatient (BNVA) | payer MEDICARE, BC, SELFPAY | PROVIDERS: PCP Nurse Practitioner Family; Visit Provider Nurse Practitioner Family | DX: L30.4 Erythema intertrigo (principal); M79.2 Neuralgia and neuritis, unspecified; L57.8 Other skin changes due to chronic exposure to nonionizing radiation; L81.4 Other melanin hyperpigmentation; D22.0 Melanocytic nevi of lip; L82.1 Other seborrheic keratosis | CPT/HCPCS: 99213 ==

== ENCOUNTER 2023-06-29 12:50 | Outpatient (CLI) | payer MEDICARE, BC, SELFPAY ==
--- NOTE | 2023-06-29 12:58 | XRR_ITS ---
PROCEDURE INFORMATION: Exam: XR Chest Exam date and time: 06/29/2023 1:05 PM Age: 77 years old Clinical indication: Cough; Additional info: Hypoxia TECHNIQUE: Imaging protocol: Radiologic exam of the chest. Views: 2 views. 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 Gastric lap band. Lungs: No active pulmonary disease. Pleural spaces: No pleural effusion or pneumothorax. Heart/Mediastinum: Unremarkable. Bones/joints: Thoracolumbar spine curvature with degenerative change. XR/XR chest 2V* [id number] IMPRESSION: No acute pathology or significant interval change.
--- NOTE | 2023-06-29 12:58 | XRR_ITS ---
PROCEDURE INFORMATION: Exam: XR Left Shoulder Exam date and time: 06/29/2023 1:05 PM Age: 77 years old Clinical indication: Pain; Shoulder; Left; Additional info: L shoulder joint pain TECHNIQUE: Imaging protocol: Radiologic exam of the left shoulder. Views: 2 or more views. COMPARISON: CR XR chest 2V* [id number] 06/29/2023 1:05 PM FINDINGS: Bones/joints: Mild glenohumeral and acromioclavicular degenerative change. Corticated structure projected along the posterior aspect of the glenoid consistent with a chronic abnormality. No acute fracture or dislocation. Normal acromial humeral interval. Soft tissues: No significant soft tissue pathology. XR/XR shoulder LT min 2V* [id number] IMPRESSION: No acute bony pathology.
== END 2023-06-29 12:51 | disposition home or self-care (01) ==
LOC: RAD 12:50
PROVIDERS: PCP Nurse Practitioner Family; Visit Provider Nurse Practitioner Family
DX: R09.02 Hypoxemia (principal); M25.512 Pain in left shoulder
CPT/HCPCS: 71046; 73030

== ENCOUNTER 2023-09-23 10:37 | Outpatient (CLI) | payer MEDICARE, BC, SELFPAY ==
--- NOTE | 2023-09-23 10:47 | MM_ITS ---
WS: [email or web address] BILATERAL 3D TOMOSYNTHESIS DIGITAL DIAGNOSTIC MAMMOGRAPHY WITH CAD CLINICAL INFORMATION: LUMP IN THE R BREAST-UPPER OUTER QUADRANT HISTORY: Bruise upper outer quadrant RIGHT breast. Breast lump. COMPARISON: 12/31/2021 TECHNIQUE: Bilateral CC, MLO, and ML views. FINDINGS: Scattered fibroglandular densities bilaterally. Palpable marker upper outer quadrant with normal unde rlying parenchymal tissue. Small ovoid nodule with a few calcifications near the 9 o'clock position m easuring 6 mm. Ultrasound of these areas is pending. Incidental punctate and secretory calcifications. Lucent centered calcifications. ULTRASOUND BREAST RIGHT TECHNIQUE: Ultrasound right breast focused area of concern. CLINICAL INFORMATION: LUMP IN THE R BREAST-UPPER OUTER QUADRANT FINDINGS: Ultrasound RIGHT breast in the area of concern upper outer quadrant near the 9 o'clock position. Smal l simple cyst visualized in the 9 o'clock position 11 cm from the nipple in the area of patient stacy rn measuring 5 x 4 x 3 mm. No other suspicious abnormalities. Findings are benign. Recommend return t o annual screening mammography. IMPRESSION: MM/[place] [id number] BI-RADS: 2-Benign FOLLOW UP: 1 Year Follow-up Recommend return to annual screening mammography.
== END 2023-09-23 10:38 | disposition home or self-care (01) ==
LOC: RAD 10:38
PROVIDERS: PCP Nurse Practitioner Family; Visit Provider Nurse Practitioner Family
DX: N63.11 Unspecified lump in the right breast, upper outer quadrant (principal)
CPT/HCPCS: 76642; 77062; G0279

== ENCOUNTER 2023-10-13 12:46 | Outpatient (CLI) | payer MEDICARE, BC, SELFPAY ==
--- NOTE | 2023-10-13 12:53 | USCV_ITS ---
LinetteCherelle Age: 77 Gender: F : 1945 Exam Date: 10/13/2023 13:21 Ordering Phys: Mitra Srivastava OPERATIONS ADMINISTRATOR Technologist: [place] [facility] [place]: dizziness Risk Factors: Previous Vascular Surgery: Right Brachial BP: / Left Brachial BP: / Right Left Velocity (cm/s) Spectral Plaque Velocity (cm/s) Spectral Plaque Syst/Diast Broadening Syst/Diast Broadening 71.30/ 11.60 Prox CCA 81.00 / 10.60 85.60/ 15.50 Mid CCA 88.20 / 12.40 71.30/ 10.30 Distal CCA 66.50 / 8.80 82.50/ 10.10 Prox ICA 74.80 / 8.80 53.10/ 11.60 Mid ICA 49.80 / 14.10 47.90/ 12.90 Distal ICA 48.00 / 14.50 82.50 ECA 80.30 1.20 ICA/CCA 1.10 Antegrade Vertebral Antegrade 44.00/ 7.70 cm/s 44.50/ 8.80 cm/s Tri Subclavian Tri 112.3 103.4 0 0 CONCLUSIONS Intimal thickening in the common carotid arteries and internal carotid arteries bilaterally. Right ICA stenosis <50%. Mild atheromatous plaque right carotid bulb/ICA. Left ICA stenosis <50%. Mild atheromatous plaque left carotid bulb/ICA. Normal antegrade Doppler flow noted in the right vertebral artery. Normal antegrade Doppler flow noted in the left vertebral artery. Viet Werner MD (Electronically Signed) Final Date: 13 Oct 2023 15:48 S
== END 2023-10-13 12:47 | disposition home or self-care (01) ==
LOC: RAD 12:46
PROVIDERS: PCP Nurse Practitioner Family; Visit Provider Nurse Practitioner Family
DX: R42 Dizziness and giddiness (principal); I65.21 Occlusion and stenosis of right carotid artery; I65.22 Occlusion and stenosis of left carotid artery
CPT/HCPCS: 93880

== ENCOUNTER 2024-01-21 04:32 | Emergency (ER) | payer MEDICARE, BC, SELFPAY ==
[2024-01-21 04:33] VITALS: BP 175/113; PULSE 80; RESP 16; TEMP 36; O2SAT 96; BMI 36.1
--- NOTE | 2024-01-21 04:42 | CTR_ITS ---
PROCEDURE INFORMATION: Exam: CT Head Without Contrast Exam date and time: 01/21/2024 5:02 AM Age: 78 years old Clinical indication: Injury or trauma; Fall; Bleeding/hemorrhage and blunt trauma (contusions or hematomas); Consciousness not specified; Prior surgery; Surgery date: 6+ months; Surgery type: 15 years ago, shunt placed; Additional info: Fall, laceration, head trauma, on eliquis TECHNIQUE: Imaging protocol: Computed tomography of the head without contrast. Radiation optimization: All CT scans at this facility use at least one of these dose optimization techniques: automated exposure control; mA and/or kV adjustment per patient size (includes targeted exams where dose is matched to clinical indication); or iterative reconstruction. COMPARISON: CT head wo con* [id number] 07/29/2022 1:52 PM RADIATION DOSE METRICS: Total DLP (mGy-cm): 1123.678 FINDINGS: Tubes, catheters and devices: Stable right parietal approach RISK MANAGEMENT ANALYST shunt. Brain: Diffuse cerebral atrophy and white matter microangiopathic chronic ischemia in both hemispheres. No CT evidence of acute infarct, hemorrhage, mass or mass effect. Cerebral ventricles: Ventricle size is stable. No evidence of progressive hydrocephalus. Paranasal sinuses: Visualized sinuses are unremarkable. No fluid levels. Mastoid air cells: Visualized mastoid air cells are well aerated. Bones: Unremarkable. No acute fracture. Soft tissues: There is a moderate sized left frontal scalp hematoma. CT/CT head wo con* [id number] IMPRESSION: 1. Senescent brain changes but no CT evidence of acute brain injury. 2. Moderate size left frontal scalp hematoma. 3. Stable ventricles. The right parietal approach RISK MANAGEMENT ANALYST shunt is stable.
--- NOTE | 2024-01-21 04:42 | ED_ITS ---
HPI - Head Injury 2 General: Chief complaint: Head Injury Stated complaint: Fall, head lac Time Seen by Provider: 01/21/24 04:39 History of Present Illness: Patient presents to the ER by EMS for complaints of falling out of bed hitting her head on the corner of the table and having a laceration on the left side of her head. Patient is on Eliquis and has bled profusely. Bleeding is controlled. Patient denies any loss of consciousness or neck pain. Related Data Home Medications Medication Instructions Recorded Confirmed atorvastatin 40 mg tablet 40 mg PO DAILY@11/28/21 01/17/24 vilazodone 20 mg tablet (Viibryd) 20 mg PO DAILY@11/28/21 01/17/24 irbesartan 300 mg tablet 300 mg PO DAILY@04/14/22 01/17/24 sitagliptin phosphate 100 mg 100 mg PO DAILY@04/14/22 01/17/24 tablet (Januvia) dulaglutide 0.75 mg/0.5 mL 0.75 mg SUBCUT Q7D 08/06/22 01/17/24 subcutaneous pen injector (Trulicity) cholecalciferol (vitamin D3) 25 25 mcg PO DAILY@08/26/22 01/17/24 mcg (1,000 unit) tablet (Vitamin D3) fluticasone propionate 50 2 spray intranasal BID 08/26/22 01/17/24 mcg/actuation nasal spray,suspension metformin 500 mg tablet,extended 1,000 mg PO DAILY@08/26/22 01/17/24 release 24 hr oxybutynin chloride 5 mg 5 mg PO BEDTIME 08/26/22 01/17/24 tablet,extended release 24 hr prednisolone acetate 1 % eye 1 drp ophthalmic (eye) QID 08/26/22 01/17/24 drops,suspension rivaroxaban 20 mg tablet (Xarelto) 20 mg PO DAILY@08/26/22 01/17/24 valsartan 160 mg tablet 160 mg PO DAILY 08/26/22 01/17/24 venlafaxine 37.5 mg 75 mg PO DAILY@08/26/22 01/17/24 capsule,extended release 24 hr Previous Rx's Medication Instructions Recorded Diabetic Sandal with 3 inserts #1 ea 11/26/21 polyethylene glycol 3350 17 4 g PO DAILY #119 grams 08/26/22 gram/dose oral powder (Miralax) ondansetron 4 mg disintegrating 4 mg PO Q8H PRN nausea and 09/11/22 tablet vomiting #14 tabs clopidogrel 75 mg tablet 75 mg PO DAILY@10 #90 tabs 12/10/22 enoxaparin 100 mg/mL subcutaneous 100 mg SUBCUT DIRECTED #5 mL 03/19/23 syringe (Lovenox) nystatin 100,000 unit/gram topical 1 applic topical BID 2 weeks #30 06/04/23 ointment grams Allergies Allergy/AdvReac Type Severity Reaction Status Date / Time No Known Allergies Allergy Verified 01/17/24 14:10 Review of Systems 2 General: Reports: 10 or more systems reviewed and unremarkable except in HPI and below PFSH ED 2 PFSH: Medical History SLAC (scapholunate advanced collapse) of wrist Chest pain Atherosclerosis of arteries Bilateral carotid artery stenosis entered in error Asymptomatic coronary heart disease ASHD (arteriosclerotic heart disease) Atrial fibrillation Obesity Pulmonary embolism Hyperlipidemia Depression Coronary artery disease Hypertension Stable Hydrocephalus Lumbar disc disease with radiculopathy Surgical History History of hip replacement, total Left, Right History of adjustable gastric banding Hx of appendectomy History of heart artery stent Family History Other Adopted Social History Smoking and tobacco/nicotine status: never used tobacco/nicotine Alcohol intake: never Physical Exam 2 Const: COMMON NORMALS: no acute distress, average body habitus, patient oriented x3, no limitations, healthy appearing, alert and well nourished Eye: COMMON NORMALS: Equal, round and reactive pupils present, EOMs intact bilaterally, conjunctivae normal and no scleral icterus CONJUNCTIVA: Yes conjunctivae normal PUPIL: Yes Equal, round and reactive pupils present Neck/C-Spine: COMMON NORMALS: full ROM, no lymphadenopathy, supple, no meningeal signs, no JVD and Thyroid normal THYROID: Thyroid normal Chest: COMMONS NORMALS: normal inspection of the chest and normal palpation of entire chest wall Resp: COMMON NORMALS: normal respiratory effort, No retractions, No use of accessory muscles and clear to auscultation bilaterally AUSCULTATION: clear to auscultation bilaterally Cardio: COMMON NORMALS: no JVD, regular rate, regular rhythm, S1 normal heart sound present, S2 normal heart sound present, No gallops present (Cardio), No clicks present (Cardio), No murmurs present (Cardio) and No rub (Cardio) R ATE: regular rate RHYTHM: regular rhythm HEART SOUNDS: S1 normal heart sound present and S2 normal heart sound present GI: COMMON NORMALS: Normal to inspection, nondistended, normoactive bowel sounds present, Soft to palpation, non-tender, No hepatosplenomegaly present and no masses PALPATION: Yes Soft to palpation and Yes No hepatosplenomegaly present Neuro: COMMON NORMALS: patient oriented x3 SENSORIUM/ORIENTATION: Yes alert MENINGEAL SIGNS: Yes no meningeal signs Procedures Laceration Laceration 1: Site: scalp Size (cm): 2 Description: linear Depth: simple, single layer Local Anesthetic: lidocaine 1% and with epi Amount of anesthesia used (mL): 3 Pre-repair: wound explored and deep structures intact Skin layer closed with: nylon Size (cm): 5-0 Number of sutures: 3 Technique: simple, interrupted Course 2 Vital Signs: Vital signs: Vital Signs Temperature 96.8 F L 01/21/24 04:33 Pulse Rate 92 01/21/24 07:14 Respiratory Rate 16 01/21/24 06:00 Blood Pressure 140/98 01/21/24 07:14 Pulse Oximetry 97 01/21/24 07:14 Oxygen Delivery Me thod Room Air 01/21/24 05:20 MDM - Head Injury Medcial Decision Making Patient fell out of bed hit her head and believes She is on Xarelto. Bleeding was controlled. 3 stitches was placed in her laceration. Head CT was negative. Patient be discharged back home. Medical Records I reviewed the patient's medical records. Lab Data I reviewed the patient's lab results. 01/21/24 04:55 01/21/24 04:[address] 01/21/24 04:42 IMPRESSION: 1. Senescent brain changes but no CT evidence of acute brain injury. 2. Moderate size left frontal scalp hematoma. 3. Stable ventricles. The right parietal approach [employer] shunt is stable. Laboratory Results WBC 8.48 10^3/uL (3.29-11.43) 01/21/24 04:55 RBC 4.83 10^6/uL (3.85-5.65) 01/21/24 04:55 Hgb 14.60 g/dL (11.27-16.99) 01/21/24 04:55 Hct 43.6 % (36-47) 01/21/24 04:55 MCV 90.3 fl (85-98) 01/21/24 04:55 MCH 30.2 pg (27-33) 01/21/24 04:55 MCHC 33.5 g/dL (30-55) 01/21/24 04:55 RDW 11.9 % (12.1-15.1) L 01/21/24 04:55 Plt Count 210 10^3/cmm (157-399) 01/21/24 04:55 MPV 10.0 fL (7.4-10.4) 01/21/24 04:55 Neut % (Auto) 71.8 % 01/21/24 04:55 Lymph % (Auto) 20.0 % 01/21/24 04:55 [place] % (Auto) 4.4 % 01/21/24 04:55 Eos % (Auto) 2.7 % 01/21/24 04:55 Baso % (Auto) 0.7 % 01/21/24 04:55 Neut # (Auto) 6.09 10^3/uL (1.8-7.7) 01/21/24 04:55 Lymph # (Auto) 1.7 10^3/uL (0.8-4.8) 01/21/24 04:55 [place] # (Auto) 0.4 10^3/uL (0.2-0.9) 01/21/24 04:55 Eos # (Auto) 0.2 10^3/uL (0.0-0.8) 01/21/24 04:55 Baso # (Auto) 0.1 10^3/uL (0.0-0.1) 01/21/24 04:55 Nucleated RBC % (auto) 0 % 01/21/24 04:55 Nucleated RBCs # 0.0 /100WBC 01/21/24 04:55 PT 13.40 SECONDS (12.1-14.9) 01/21/24 04:55 INR 0.99 (0.8-1.2) 01/21/24 04:55 Sodium 140 mmol/L (136-145) 01/21/24 04:55 Potassium 3.7 mmol/L (3.5-5.1) 01/21/24 04:55 Chloride 102 mmol/L (98-107) 01/21/24 04:55 Carbon Dioxide 25 mmol/L (22-29) 01/21/24 04:55 Anion Gap 16.7 (5-19) 01/21/24 04:55 BUN 12 mg/dL (8-23) 01/21/24 04:55 Creatinine 0.8 mg/dL (0.5-0.9) 01/21/24 04:55 GFR Calculation Not Reportable 01/21/24 04:55 Glucose 306 mg/dL (65-115) H 01/21/24 04:55 Calculated Osmolality 301 mOsm/kg (285-295) H 01/21/24 04:55 Calcium 8.6 mg/dL (8.5-10.5) 01/21/24 04:55 Total Bilirubin 0.6 mg/dL (0.15-1.2) 01/21/24 04:55 AST 10 U/L (0-32) 01/21/24 04:55 ALT 10 U/L (0-33) 01/21/24 04:55 Alkaline Phosphatase 103 U/L (35-105) 01/21/24 04:55 Total Protein 6.4 g/dL (6.6-8.7) L 01/21/24 04:55 Albumin 3.9 g/dL (3.5-5.2) 01/21/24 04:55 Globulin 2.5 g/dL (1.3-4.6) 01/21/24 04:55 XR interpretation done by ED provider, pending radiology final review Discharge Plan Discharge Patient Disposition: Home Clinical Impression: Laceration of scalp Qualifiers: Encounter type: initial encounter Qualified Code(s): S01.01XA - Laceration without foreign body of scalp, initial encounter Contusion of scalp Qualifiers: Encounter type: initial encounter Qualified Code(s): S00.03XA - Contusion of scalp, initial encounter Condition: Stable Prescriptions: No Action (DME) Diabetic Sandal with 3 inserts See Rx Instructions .Route .MEDSUPPLY Qty: 1 0RF Rx Instructions: As directed atorvastatin 40 mg tablet 40 mg PO DAILY@10 Viibryd 20 mg tablet 20 mg PO DAILY@10 Trulicity 0.75 mg/0.5 mL pen injector 0.75 mg SUBCUT Q7D Rx Instructions: on sat nystatin 100,000 unit/gram ointment 1 applic topical BID 14 Days Qty: 30 0RF irbesartan 300 mg tablet 300 mg PO DAILY@10 Januvia 100 mg tablet 100 mg PO DAILY@10 clopidogrel 75 mg tablet 75 mg PO DAILY@10 Qty: 90 3RF enoxaparin [Lovenox] 100 mg/mL syringe 100 mg SUBCUT DIRECTED Qty: 5 0RF Rx Instructions: 03/22/23 one injection in the PM, 03/23/23 one injection AM & PM 03/24/23 one injection AM & PM venlafaxine 37.5 mg capsule,extended release 24hr 75 mg PO DAILY@10 prednisolone acetate 1 % drops,suspension 1 drp ophthalmic (eye) QID Rx Instructions: left eye oxybutynin chloride 5 mg tablet extended release 24hr 5 mg PO BEDTIME Flonase 50 mcg/actuation [place],Suspension 2 spray INTRANASAL BID metformin 500 mg tablet extended release 24 hr 1,000 mg PO DAILY@10 valsartan 160 mg Tablet 160 mg PO DAILY Vitamin D3 25 mcg (1,000 unit) Tablet 25 mcg PO DAILY@10 Xarelto 20 mg tablet 20 mg PO DAILY@10 Miralax 17 gram/dose powder 4 g PO DAILY Qty: 119 3RF ondansetron 4 mg tablet,disintegrating 4 mg PO Q8H PRN (Reason: nausea and vomiting) Qty: 14 0RF Discharge Orders: Discharge ED (Routine); Ordered 01/21/24 Ordered By: Thang De Jesus Referrals: Mitra Srivastava FNP [Primary Care Provider] - 1 week Patient Instructions: Head Laceration (ED) Coding Level of Care Code ED Board Machine Set Up Operator for Edvin Baldwin
[2024-01-21 04:59] LABS: Basophils # 0.1 10^3/uL (0.0-0.1); Basophils % 0.7 %; Eosinophils # 0.2 10^3/uL (0.0-0.8); Eosinophils % 2.7 %; Hematocrit 43.6 % (36-47); Lymphocytes # 1.7 10^3/uL (0.8-4.8); Mean Corpuscular HGB Conc 33.5 g/dL (30-55); Mean Corpuscular Hemoglobin 30.2 pg (27-33); Mean Corpuscular Volume 90.3 fl (85-98); Monocytes # 0.4 10^3/uL (0.2-0.9); Monocytes % 4.4 %; Neutrophils # 6.09 10^3/uL (1.8-7.7); Neutrophils % 71.8 %; Nucleated Red Blood Cells % 0 %; Platelet Count 210 10^3/cmm (157-399); Red Blood Count 4.83 10^6/uL (3.85-5.65); Red Cell Distribution Width 11.9 % (12.1-15.1); White Blood Count 8.48 10^3/uL (3.29-11.43)
[2024-01-21 05:09] LABS: INR 0.99 (0.8-1.2)
[2024-01-21 05:19] LABS: Alanine Aminotransferase 10 U/L (0-33); Albumin Level 3.9 g/dL (3.5-5.2); Alkaline Phosphatase 103 U/L (35-105); Anion Gap 16.7 (5-19); Aspartate Amino Transferase 10 U/L (0-32); Blood Urea Nitrogen 12 mg/dL (8-23); Calcium 8.6 mg/dL (8.5-10.5); Carbon Dioxide 25 mmol/L (22-29); Chloride 102 mmol/L (98-107); Globulin 2.5 g/dL (1.3-4.6); Glucose 306 mg/dL (65-115); Osmolality Calculated 301 mOsm/kg (285-295); Potassium 3.7 mmol/L (3.5-5.1); Sodium 140 mmol/L (136-145); Total Bilirubin 0.6 mg/dL (0.15-1.2); Total Protein 6.4 g/dL (6.6-8.7)
[2024-01-21 05:20] VITALS: BP 140/78; RESP 18; O2SAT 100
[2024-01-21] MEDS: lidocaine-epi 1% 20 mL INJ INJECTION (05:59)
[2024-01-21 06:00] VITALS: BP 123/74; PULSE 78; RESP 16; O2SAT 97
[2024-01-21 07:14] VITALS: BP 140/98; PULSE 92; O2SAT 97
== END 2024-01-21 07:14 | disposition home or self-care (01) ==
PROVIDERS: Emergency Provider Emergency Medicine; PCP Nurse Practitioner Family
DX: S01.01XA Laceration without foreign body of scalp, initial encounter (principal); Z79.85 Long-term (current) use of injectable non-insulin antidiabetic drugs; Z79.02 Long term (current) use of antithrombotics/antiplatelets; Z79.84 Long term (current) use of oral hypoglycemic drugs; E78.5 Hyperlipidemia, unspecified; I25.10 Atherosclerotic heart disease of native coronary artery without angina pectoris; I10 Essential (primary) hypertension; W06.XXXA Fall from bed, initial encounter
CPT/HCPCS: 12001; 70450; 80053; 85025; 85610; 99284

== ENCOUNTER 2024-01-26 09:59 | Outpatient (CLI) | payer MEDICARE, BC, SELFPAY ==
--- NOTE | 2024-01-26 10:08 | XR_ITS ---
WS: [id number] Exam: XR shoulder LT min 2V* [id number] Date/Time of Exam: 01/26/2024 10:37 AM Reason For Exam: L SHOULDER JOINT PAIN Comparison 06/29/2023. No fracture or dislocation. Moderate degenerative changes of the AC joint and glenohumeral joint. Sof t tissues are unremarkable. XR/XR shoulder LT min 2V* [id number] IMPRESSION: 1. Moderate DJD.
== END 2024-01-26 10:00 | disposition home or self-care (01) ==
LOC: RAD 10:02
PROVIDERS: PCP Family Medicine; Visit Provider Family Medicine
DX: M19.012 Primary osteoarthritis, left shoulder (principal)
CPT/HCPCS: 73030

== ENCOUNTER → 2024-02-10 07:48 | Outpatient (BNVA) | payer MEDICARE, BC, SELFPAY | PROVIDERS: PCP Family Medicine; Visit Provider Physician Assistant | DX: M19.012 Primary osteoarthritis, left shoulder; M75.42 Impingement syndrome of left shoulder | CPT/HCPCS: 20610; 99203; J3301 ==